=== PATIENT | male | born 1945 | race Caucasian/White ===

== ENCOUNTER 2017-03-24 11:50 | Emergency (ER) | payer MEDICARE, BC ==
--- OUTSIDE RECORDS SUMMARY | 2017-03-24 12:04 | XMS REPORT ---
:1945 External Reference #:[id number] Author Organization [facility] Address [address] [address] Phone [phone] Care Team Providers Name Role Phone Bandar Dowell MD Primary Care Physician Unavailable Payers Type Date Identification Numbers Payment Provider Subscriber Medicare Primary Policy Number: [id number] Medicare Ludivina Alvarez Jennifer PayID: [id number] [address] [place] [address] Medigap Part B Effective: 2009 Policy Number: Medicare Ludivina Alvarez Jennifer [id number] Expires: 2014 PayID: [id number] [address] [place] [address] Medigap Part B Effective: Policy Number: BS Yulisa Alvarez Jennifer 2012 [id number] PayID: [id number] [address] [address] [place] [address] Advance Directives Type Date Description Status Comment Other Directive 12/10/2015 Health Care Proxy Current and Verified Problems Date Description Provider Status Onset: 09/14/2012 Urinary tract infectious disease Bandar Dowell M.D., FACP Active Note: recurrent Onset: 07/18/2013 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 Onset: 09/27/2015 Family history of prostate Bandar Dowell Active cancer Veda,FACP Onset: 08/28/2016 Eczema Bandar Dowell Active Veda,FACP Onset: 08/28/2016 Osteoarthritis of glenohumeral Bandar Dowell Active joint Veda,FACP Onset: 11/03/2016 Impaired fasting glycaemia Bandar Dowell, Active Veda,FACP Onset: 06/16/2012 Hypo-osmolality and or Bandar Dowell, Resolved hyponatremia Veda,FACP Resolved: 07/04/2012 Onset: 06/20/2012 Acute prostatitis Bandar Dowell M.D.,FACP Resolved Resolved: 09/14/2012 Family History Date Family Member(s) Problem(s) Comments General No Current Problems : (age 79 Father due to Natural Years) Causes Father Unknown mostly, estranged : (age 95 Mother due to CHF Years) Mother Osteoporosis Siblings 1 First Brother Prostate Cancer ? Social History Type Date Description Comments Marital Status Occupation Professor chemical research engineer ETOH Use 09/27/2015 Consumes 1 glass of wine per day Smoking Patient has never smoked Recreational Drug Use Denies Drug Use General Hx Text 1 daughter, vet no undercooked meat, or unpasteurized dairy consumption travel to , [place], [facility] Was visiting daughter in , was around goats and chickens then in January. Allergies, Adverse Reactions, Alerts Date Description Reaction Status Severity Comments 06/16/2012 NKDA active Medications Medication Date Status Form Strength Qnty SIG Indications Ordering Provider Fluocinonide 07/06/ Active Cream 0.05% 30gm twice a [place] 2013 day as Pachikara needed Veda rash Hydrocortisone 07/04/ Active Ointment 1% 30unit topical Bandar 2014 s every day Azeem Dowell as needed Veda,DANAE disp 2 x 15 gm tubes Bactroban 07/04/ Active Ointment 2% 22unit apply to Bandar 2014 s affected Azeem Dowell area Veda,FACP twice a day Centrum Silver 06/16/ Active Tablets 1 po qd Bandar Ultra Mens 2012 Azeem Dowell M.D.,FACP Glucosamine / Active Capsules 250-200mg 1 po qd Unknown Chondroitin 0000 Calcium Citrate / Active Tablets 250-200mg- 1po daily Unknown + D3 0000 Unit Motrin Ib / Active Tablets 200mg 60tabs 2 tablets Unknown 0000 prn Fluconazole 11/03/ Hx Tablets 200mg 1 tab po Bandar 2017 - weekly Azeem Dowell, 01/26/ for 12 M.D.,[facility] 2016 wks Triamcinolone 08/28/ Hx Cream 0.1% 15gm apply Bandar Acetonide 2017 - every day Azeem Dowell, 11/03/ as needed M.D.,FACP 2016 to face Bactrim DS 06/28/ Hx Tablets 800-160mg 20tabs 1 by 601.1 Pablo 2014 - mouth D. 07/29/ twice a [place], 2014 day M.D. Bactrim DS 05/14/ Hx Tablets 800-160mg 60tabs 2 tab by 601.1 Pablo 2014 - mouth D. 06/28/ twice a [place], 2014 day M.D. Invanz 04/02/ Hx Solution 1gm 42unit every 12 Bandar 2015 - Rec s hours Azeem Dowell, 05/13/ M.D.,[facility] 2014 Bactrim DS 11/16/ Hx Tablets 800-160mg 120tab 2 by 601.1 Pablo 2013 - s mouth D. 04/02/ twice a 2014 day M.D. Bactrim DS 09/28/ Hx Tablets 800-160mg 180tab 2 tabs po Pablo 2013 - s tid D. 11/16/ 2013 M.D. Augmentin 09/13/ Hx Tablets 500-125mg 60tabs 1 by Bandar 2013 - mouth Azeem Dowell, 10/18/ twice a [facility].,[facility] 2013 day Tramadol HCL 07/18/ Hx Tablets 50mg 45tabs 1-2 by 721.0 Rios Zambrano 2013 - mouth [place], 05/13/ four M.D. 2015 times a day as needed Augmentin 07/17/ Hx Tablets 500-125mg 60tabs 1 by 601.1 Pablo 2013 - mouth D. 09/13/ twice a [place], 2013 day M.D. Augmentin 06/13/ Hx Tablets 500-125mg 112tab 1 by Pablo 2013 - s mouth D. 06/13/ twice a [place]2013 day M.D. Augmentin 06/13/ Hx Tablets 500-125mg 60tabs 1 by Pablo 2013 - mouth D. 09/13/ twice a [place], 2013 day M.D. Augmentin 05/10/ Hx Tablets 500-125mg 84tabs 1 by 601.1 Pablo 2013 - mouth D. 06/13/ twice a [place], 2013 day M.D. Augmentin 03/07/ Hx Tablets 500-125mg 56tabs 1 po bid 601.1 Pablo 2013 - D. 05/10/ [place], 2013 M.D. Doxycycline 12/07/ Hx Tablets DR 100mg 20tabs 1 tab po 601.[address] 2012 - bid Azeem Dowell, 04/11/ M.D.,FACP 2013 Fluocinonide 11/23/ Hx Cream 0.05% 30unit bid prn Bandar 2013 - s rash Azeem Dowell, 02/24/ M.D.,FACP 2012 Hydrocortisone 11/16/ Hx Ointment 1% 30unit topical Bandar 2013 - s qd prn Azeem Dowell, 11/23/ disp 2 x M.D.,FACP 2012 15 gm tubes Voltaren 09/14/ Hx Gel 1% 100g apply 2 728.71 Bandar 2013 - gms to DuongBennett Valderramad, 11/24/ affected M.D.,FACP 2012 area bid prn Bactroban 08/03/ Hx Ointment 2% 15g apply to Bandar 2012 - affected Azeem Dowell, 02/01/ area bid M.D.,FACP 2012 Bactrim DS 06/24/ Hx Tablets 800-160mg 56tabs 1 po bid 601.0 Pablo 2012 - D. 07/22/ [place], 2012 M.D. Cipro / Hx Tablets 500mg 1 po bid Unknown 0000 - 2012 Cheratussin ac / Hx Syrup 100-10mg/5 120uni 1-2 tsp Bandar 0000 - ML ts po every D. Magalys, 07/04/ 4-6 hrs M.D.,FACP 2012 prn Ventolin HFA / Hx Aerosol 108(90Base 1Month 2 puffs Unknown 0000 - ) mcg/Act po qid 09/14/ prn 2012 Bactrim DS / Hx Tablets 800-160mg 14tabs 1 po bid Unknown - 2012 Bactrim DS / Hx Tablets 800-160mg 56tabs 1 po bid 601.0 Unknown 0000 - 2012 Bactrim DS / Hx Tablets 800-160mg 20tabs 1 po bid Bandar Dowell, 06/27/ Veda,[facility] 2014 Immunizations CPT Code Status Date Vaccine Lot # [id number] Given 01/14/2017 Influenza Virus Vaccine, Quadrivalent, Split, Preservative Free 21158 Given 09/27/2015 Pneumococcal Conjugate Vaccine 13 Valent For [id number] Intramuscular Use 69864 Given 02/15/2014 Zoster (Zostavax) [id number] 83292 Given 12/13/2013 Influenza Virus Vaccine, Quadrivalent, Split, Preservative Free 14600 Given 09/14/2012 Pneumonia Vaccine [id number] 70143 Given 09/07/2002 Td Toxoids Adsorbed For Use 7Yrs Or Older For Intramuscular Use Vital Signs Date Vital Result Comment 03/09/2017 Height 74.5 inches 6'2.50" Weight 220.00 lb Heart Rate 74 /min BP Systolic Sitting 150 mmHg BP Diastolic Sitting 90 mmHg BP Systolic Recheck 132 mmHg BP Diastolic Recheck 84 mmHg Body Temperature 96.7 F O2 % BldC Oximetry 96 % BMI (Body Mass Index) 27.9 kg/m2 11/03/2016 Weight 215.75 lb Heart Rate 67 /min BP Systolic Sitting 160 mmHg BP Diastolic Sitting 88 mmHg BP Systolic Recheck 160 mmHg BP Diastolic Recheck 85 mmHg Body Temperature 97.8 F O2 % BldC Oximetry 98 % 08/28/2016 Weight 216.38 lb Heart Rate 63 /min BP Systolic Sitting 170 mmHg BP Diastolic Sitting 90 mmHg BP Systolic Recheck 144 mmHg BP Diastolic Recheck 92 mmHg Body Temperature 97.2 F O2 % BldC Oximetry 98 % 06/24/2016 Weight 217.12 lb Heart Rate 68 /min BP Systolic Sitting 152 mmHg BP Diastolic Sitting 91 mmHg Body Temperature 97.1 F O2 % BldC Oximetry 98 % 02/13/2016 Weight 222.00 lb Heart Rate 57 /min BP Systolic Sitting 148 mmHg BP Diastolic Sitting 82 mmHg Body Temperature 97.6 F O2 % BldC Oximetry 96 % 09/27/2015 Height 75 inches 6'3" Weight 217.00 lb Heart Rate 66 /min BP Systolic Sitting 122 mmHg BP Diastolic Sitting 70 mmHg Body Temperature 97.3 F O2 % BldC Oximetry 98 % BMI (Body Mass Index) 27.1 kg/m2 07/30/2014 Height 75 inches 6'3" Weight 222.00 lb Heart Rate 64 /min BP Systolic Sitting 116 mmHg BP Diastolic Sitting 62 mmHg Respiratory Rate 14 /min Body Temperature 97.6 F BMI (Body Mass Index) 27.7 kg/m2 06/28/2014 Height 75 inches 6'3" Weight 224.50 lb Heart Rate 60 /min BP Systolic Sitting 106 mmHg BP Diastolic Sitting 60 mmHg Respiratory Rate 14 /min Body Temperature 97.3 F BMI (Body Mass Index) 28.1 kg/m2 05/14/2014 Height 75 inches 6'3" Weight 227.25 lb Heart Rate 68 /min BP Systolic Sitting 114 mmHg BP Diastolic Sitting 66 mmHg Respiratory Rate 14 /min Body Temperature 97.7 F BMI (Body Mass Index) 28.4 kg/m2 04/11/2014 Height 75 inches 6'3" Weight 223.00 lb Heart Rate 54 /min BP Systolic Sitting 124 mmHg BP Diastolic Sitting 72 mmHg Respiratory Rate 14 /min Body Temperature 97.4 F BMI (Body Mass Index) 27.9 kg/m2 03/19/2014 Height 75 inches 6'3" Weight 223.00 lb Heart Rate 58 /min BP Systolic Sitting 122 mmHg BP Diastolic Sitting 60 mmHg Respiratory Rate 16 /min Body Temperature 96.6 F BMI (Body Mass Index) 27.9 kg/m2 01/22/2014 Height 75 inches 6'3" Heart Rate 49 /min BP Systolic Sitting 122 mmHg BP Diastolic Sitting 64 mmHg Respiratory Rate 14 /min Body Temperature 97.7 F 01/01/2014 Height 75 inches 6'3" Weight 221.00 lb Heart Rate 58 /min BP Systolic Sitting 120 mmHg BP Diastolic Sitting 72 mmHg Respiratory Rate 14 /min Body Temperature 97.2 F BMI (Body Mass Index) 27.6 kg/m2 11/16/2013 Height 75 inches 6'3" Weight 219.00 lb Heart Rate 48 /min BP Systolic Sitting 112 mmHg BP Diastolic Sitting 76 mmHg Respiratory Rate 14 /min Body Temperature 98.3 F BMI (Body Mass Index) 27.4 kg/m2 10/19/2013 Height 75 inches 6'3" Weight 218.00 lb Heart Rate 52 /min BP Systolic Sitting 118 mmHg BP Diastolic Sitting 70 mmHg Respiratory Rate 14 /min Body Temperature 97.3 F BMI (Body Mass Index) 27.2 kg/m2 09/18/2013 Weight 225.00 lb Heart Rate 60 /min BP Systolic Sitting 90 mmHg BP Diastolic Sitting 60 mmHg Body Temperature 97.5 F 09/13/2013 Weight 218.00 lb Heart Rate 98 /min BP Systolic Sitting 124 mmHg BP Diastolic Sitting 72 mmHg Body Temperature 98.5 F 07/18/2013 Height 75 inches 6'3" Weight 225.00 lb BP Systolic 118 mmHg BP Diastolic 60 mmHg Pain Level 2 neck BMI (Body Mass Index) 28.1 kg/m2 07/17/2013 Height 75 inches 6'3" Weight 225.00 lb Heart Rate 76 /min BP Systolic 142 mmHg BP Diastolic 86 mmHg Body Temperature 97.2 F BMI (Body Mass Index) 28.1 kg/m2 06/27/2013 Weight 223.50 lb Heart Rate 42 /min BP Systolic Sitting 120 mmHg BP Diastolic Sitting 72 mmHg 05/10/2013 Height 75 inches 6'3" Weight 225.00 lb Heart Rate 72 /min BP Systolic 120 mmHg BP Diastolic 76 mmHg Body Temperature 97.7 F BMI (Body Mass Index) 28.1 kg/m2 03/07/2013 Height 75 inches 6'3" Weight 225.00 lb Heart Rate 60 /min BP Systolic 124 mmHg BP Diastolic 70 mmHg Body Temperature 97.4 F BMI (Body Mass Index) 28.1 kg/m2 02/24/2013 Height 75 inches 6'3" Weight 224.25 lb Heart Rate 64 /min BP Systolic Sitting 98 mmHg BP Diastolic Sitting 56 mmHg Body Temperature 101.8 F BMI (Body Mass Index) 28.0 kg/m2 02/01/2013 Weight 224.00 lb Heart Rate 60 /min BP Systolic Sitting 122 mmHg BP Diastolic Sitting 76 mmHg Body Temperature 97.7 F 01/03/2013 Weight 220.00 lb Heart Rate 60 /min BP Systolic 124 mmHg BP Diastolic 74 mmHg Body Temperature 97.6 F 12/07/2012 Weight 220.00 lb Heart Rate 68 /min BP Systolic 118 mmHg BP Diastolic 72 mmHg Body Temperature 96.8 F 11/24/2012 Weight 219.50 lb Heart Rate 48 /min BP Systolic Sitting 130 mmHg BP Diastolic Sitting 64 mmHg 09/14/2012 Height 75.25 inches 6'3.25" Weight 216.50 lb Heart Rate 56 /min BP Systolic Sitting 120 mmHg BP Diastolic Sitting 84 mmHg BMI (Body Mass Index) 26.9 kg/m2 08/17/2012 Height 74.75 inches 6'2.75" Weight 215.00 lb Heart Rate 60 /min BP Systolic 110 mmHg BP Diastolic 76 mmHg Body Temperature 96.8 F BMI (Body Mass Index) 27.1 kg/m2 07/04/2012 Height 74.75 inches 6'2.75" Weight 215.00 lb Heart Rate 58 /min BP Systolic Sitting 120 mmHg BP Diastolic Sitting 72 mmHg Body Temperature 97.2 F BMI (Body Mass Index) 27.1 kg/m2 06/24/2012 Weight 217.00 lb BP Systolic Sitting 124 mmHg BP Diastolic Sitting 74 mmHg Body Temperature 98.2 F 06/20/2012 Weight 217.00 lb Heart Rate 82 /min BP Systolic Sitting 132 mmHg BP Diastolic Sitting 78 mmHg Body Temperature 98.8 F O2 % BldC Oximetry 93 % 06/16/2012 Height 75.25 inches 6'3.25" Weight 217.25 lb Heart Rate 64 /min BP Systolic Sitting 144 mmHg BP Diastolic Sitting 80 mmHg Body Temperature 102.8 F BMI (Body Mass Index) 27.0 kg/m2 Results Test Date Test Result H/L Range Note Lipid Profile (Trig/Chol/HDL) 10/16/2016 Triglycerides 53 mg/dL 1 Cholesterol 159 mg/dL 2 HDL Cholesterol 55.6 mg/dL 3 LDL Cholesterol 93 mg/dL 4 Basic Metabolic Panel 10/16/2016 Sodium 130 mmol/L Low 133-145 Potassium 4.5 mmol/L 3.5-5.0 Chloride 95 mmol/L Low 101-111 Co2 Carbon Dioxide 31 mmol/L 22-32 Anion Gap 4 mmol/L 2-11 Glucose 106 mg/dL High 70-100 Blood Urea Nitrogen 16 mg/dL 6-24 Creatinine 0.87 mg/dL 0.67-1.17 BUN/Creatinine Ratio 18.4 8-20 Calcium 9.4 mg/dL 8.6-10.3 Egfr Non- 86.3 >60 Egfr 110.9 >60 5 Laboratory test finding 03/05/2016 PSA Screening 1.154 ng/mL 0-4.000 6 Basic Metabolic Panel 03/05/2016 Sodium 129 mmol/L Low 133-145 Potassium 4.0 mmol/L 3.5-5.0 Chloride 93 mmol/L Low 101-111 Co2 Carbon Dioxide 28 mmol/L 22-32 Anion Gap 8 mmol/L 2-11 Glucose 100 mg/dL 70-100 Blood Urea Nitrogen 21 mg/dL 6-24 Creatinine 0.83 mg/dL 0.67-1.17 BUN/Creatinine Ratio 25.3 High 8-20 Calcium 9.3 mg/dL 8.6-10.3 Egfr Non- 91.3 >60 Egfr 117.5 >60 7 Laboratory test finding 03/05/2016 Osmolality Serum 271 mOsm/kg Low 275 - 295 8 Vitamin B12 617 pg/mL 180-914 9 Lipid Profile (Trig/Chol/HDL) 09/23/2015 Triglycerides 52 mg/dL 10 Cholesterol 146 mg/dL 11 HDL Cholesterol 49.6 mg/dL 12 LDL Cholesterol 86 mg/dL 13 Laboratory test 09/23/2015 Glucose 94 mg/dL 70-100 14 finding Ua And Culture 07/26/2014 Urine Culture And SEE RESULT BELOW 15 Sensitivity Sensitivities Urinalysis Profile 07/26/2014 Urine Color Yellow Urine Appearance Clear Urine Specific [place] 1.015 1.010-1.030 Urine pH 7.0 5-9 Urine Urobilinogen Negative Negative Urine Ketones Negative Negative Urine Protein Negative Negative Urine Leukocytes Negative Negative Urine Blood Negative Negative * * Negative 16 Urine Nitrite Negative Negative Urine Bilirubin Negative Negative Urine Glucose Negative Negative Urine Culture And Sensitivities 06/28/2014 Urine Culture (SEE NOTE) 17 Urinalysis Profile 06/28/2014 Urine Color Yellow Urine Appearance Clear Urine Specific [place] 1.017 1.010-1.030 Urine pH 6.0 5-9 Urine Urobilinogen Negative Negative Urine Ketones Negative Negative Urine Protein Negative Negative Urine Leukocytes Negative Negative Urine Blood Negative Negative * * Negative 18 Urine Nitrite Negative Negative Urine Bilirubin Negative Negative Urine Glucose Negative Negative Comp Metabolic Panel 05/14/2014 Sodium 130 mmol/L Low 133-145 Potassium 4.2 mmol/L 3.5-5.0 Chloride 97 mmol/L Low 101-111 Co2 Carbon Dioxide 29 mmol/L 22-32 Anion Gap 4 mmol/L 2-11 Glucose 111 mg/dL High 70-100 Blood Urea Nitrogen 17 mg/dL 6-24 Creatinine 0.79 mg/dL 0.67-1.17 BUN/Creatinine Ratio 21.5 High 8-20 Calcium 9.2 mg/dL 8.6-10.3 Total Protein 6.8 g/dL 6.4-8.9 Albumin 3.9 g/dL 3.2-5.2 Globulin 2.9 g/dL 2-4 Albumin/Globulin Ratio 1.3 1-3 Total Bilirubin 0.60 mg/dL 0.2-1.0 Alkaline Phosphatase 74 U/L 34-104 Alt 32 U/L 7-52 Ast 28 U/L 13-39 Egfr Non- 97.2 >60 Egfr 125.1 >60 19 Laboratory test finding 05/14/2014 CRP High Sensitivity 0.94 mg/L 20 CBC Auto Diff 05/14/2014 White Blood Count 3.9 10^3/uL Low 4.8-10.8 Red Blood Count 4.73 10^6/uL 4.0-5.4 Hemoglobin 15.6 g/dL 14.0-18.0 Hematocrit 46 % 42-52 Mean Corpuscular Volume 97 fL High 80-94 Mean Corpuscular Hemoglobin 33 pg High 27-31 Mean Corpuscular HGB Conc 34 g/dL 31-36 Red Cell Distribution Width 13 % 10.5-15 Platelet Count 183 10^3/uL 150-450 Mean Platelet Volume 7 um3 Low 7.4-10.4 Abs Neutrophils 2.5 10^3/uL 1.5-7.7 Abs Lymphocytes 0.8 10^3/uL Low 1.0-4.8 Abs Monocytes 0.5 10^3/uL 0-0.8 Abs Eosinophils 0 10^3/uL 0-0.6 Abs Basophils 0 10^3/uL 0-0.2 Abs Nucleated RBC 0.01 10^3/uL Granulocyte % 64.1 % 38-83 Lymphocyte % 20.1 % Low 25-47 Monocyte % 14.1 % High 1-9 Eosinophil % 0.9 % 0-6 Basophil % 0.8 % 0-2 Nucleated Red Blood Cells % 0.2 Laboratory test finding 05/14/2014 Erythrocyte Sed Rate 3 mm/Hr 0-40 Laboratory test finding 05/07/2014 Erythrocyte Sed Rate 6 mm/Hr 0-40 Comp Metabolic Panel 05/07/2014 Sodium 128 mmol/L Low 133-145 Potassium 3.8 mmol/L 3.5-5.0 Chloride 95 mmol/L Low 101-111 Co2 Carbon Dioxide 28 mmol/L 22-32 Anion Gap 5 mmol/L 2-11 Glucose 126 mg/dL High 70-100 Blood Urea Nitrogen 19 mg/dL 6-24 Creatinine 0.79 mg/dL 0.67-1.17 BUN/Creatinine Ratio 24.1 High 8-20 Calcium 9.3 mg/dL 8.6-10.3 Total Protein 6.7 g/dL 6.4-8.9 Albumin 3.8 g/dL 3.2-5.2 Globulin 2.9 g/dL 2-4 Albumin/Globulin Ratio 1.3 1-3 Total Bilirubin 0.60 mg/dL 0.2-1.0 Alkaline Phosphatase 74 U/L 34-104 Alt 32 U/L 7-52 Ast 26 U/L 13-39 Egfr Non- 97.2 >60 Egfr 125.1 >60 21 Laboratory test finding 05/07/2014 C Reactive Protein 1.16 mg/L < 5.00 22 CBC Auto Diff 05/07/2014 White Blood Count 3.7 10^3/uL Low 4.8-10.8 23 Red Blood Count 4.79 10^6/uL 4.0-5.4 Hemoglobin 15.7 g/dL 14.0-18.0 Hematocrit 47 % 42-52 Mean Corpuscular Volume 98 fL High 80-94 Mean Corpuscular Hemoglobin 33 pg High 27-31 Mean Corpuscular HGB Conc 34 g/dL 31-36 Red Cell Distribution Width 13 % 10.5-15 Platelet Count 178 10^3/uL 150-450 Mean Platelet Volume 8 um3 7.4-10.4 Abs Neutrophils 2.4 10^3/uL 1.5-7.7 Abs Lymphocytes 0.8 10^3/uL Low 1.0-4.8 Abs Monocytes 0.4 10^3/uL 0-0.8 Abs Eosinophils 0 10^3/uL 0-0.6 Abs Basophils 0 10^3/uL 0-0.2 Abs Nucleated RBC 0 10^3/uL Granulocyte % 65.2 % 38-83 Lymphocyte % 21.9 % Low 25-47 Monocyte % 10.9 % High 1-9 Eosinophil % 1.2 % 0-6 Basophil % 0.8 % 0-2 Nucleated Red Blood Cells % 0.1 Comp Metabolic Panel 04/30/2014 Sodium 131 mmol/L Low 133-145 Potassium 4.0 mmol/L 3.5-5.0 Chloride 97 mmol/L Low 101-111 Co2 Carbon Dioxide 30 mmol/L 22-32 Anion Gap 4 mmol/L 2-11 Glucose 125 mg/dL High 70-100 Blood Urea Nitrogen 17 mg/dL 6-24 Creatinine 0.84 mg/dL 0.67-1.17 BUN/Creatinine Ratio 20.2 High 8-20 Calcium 9.2 mg/dL 8.6-10.3 Total Protein 6.8 g/dL 6.4-8.9 Albumin 4.0 g/dL 3.2-5.2 Globulin 2.8 g/dL 2-4 Albumin/Globulin Ratio 1.4 1-3 Total Bilirubin 0.70 mg/dL 0.2-1.0 Alkaline Phosphatase 73 U/L 34-104 Alt 33 U/L 7-52 Ast 28 U/L 13-39 Egfr Non- 90.6 >60 Egfr 116.5 >60 24 Laboratory test finding 04/30/2014 C Reactive Protein 1.28 mg/L < 5.00 25 CBC Auto Diff 04/30/2014 White Blood Count 3.6 10^3/uL Low 4.8-10.8 Red Blood Count 4.67 10^6/uL 4.0-5.4 Hemoglobin 15.5 g/dL 14.0-18.0 Hematocrit 45 % 42-52 Mean Corpuscular Volume 97 fL High 80-94 Mean Corpuscular Hemoglobin 33 pg High 27-31 Mean Corpuscular HGB Conc 34 g/dL 31-36 Red Cell Distribution Width 13 % 10.5-15 Platelet Count 200 10^3/uL 150-450 Mean Platelet Volume 7 um3 Low 7.4-10.4 Abs Neutrophils 2.4 10^3/uL 1.5-7.7 Abs Lymphocytes 0.7 10^3/uL Low 1.0-4.8 Abs Monocytes 0.4 10^3/uL 0-0.8 Abs Eosinophils 0 10^3/uL 0-0.6 Abs Basophils 0 10^3/uL 0-0.2 Abs Nucleated RBC 0 10^3/uL Granulocyte % 66.5 % 38-83 Lymphocyte % 20.7 % Low 25-47 Monocyte % 10.8 % High 1-9 Eosinophil % 1.1 % 0-6 Basophil % 0.9 % 0-2 Nucleated Red Blood Cells % 0 Laboratory test finding 04/30/2014 Erythrocyte Sed Rate 7 mm/Hr 0-40 Comp Metabolic Panel 04/23/2014 Sodium 132 mmol/L Low 133-145 Potassium 4.2 mmol/L 3.5-5.0 Chloride 98 mmol/L Low 101-111 Co2 Carbon Dioxide 30 mmol/L 22-32 Anion Gap 4 mmol/L 2-11 Glucose 101 mg/dL High 70-100 Blood Urea Nitrogen 19 mg/dL 6-24 Creatinine 0.79 mg/dL 0.67-1.17 BUN/Creatinine Ratio 24.1 High 8-20 Calcium 9.0 mg/dL 8.6-10.3 Total Protein 6.9 g/dL 6.4-8.9 Albumin 4.1 g/dL 3.2-5.2 Globulin 2.8 g/dL 2-4 Albumin/Globulin Ratio 1.5 1-3 Total Bilirubin 0.60 mg/dL 0.2-1.0 Alkaline Phosphatase 71 U/L 34-104 Alt 37 U/L 7-52 Ast 29 U/L 13-39 Egfr Non- 97.2 >60 Egfr 125.1 >60 26 Laboratory test finding 04/23/2014 C Reactive Protein 1.66 mg/L < 5.00 27 CBC Auto Diff 04/23/2014 White Blood Count 4.3 10^3/uL Low 4.8-10.8 Red Blood Count 4.81 10^6/uL 4.0-5.4 Hemoglobin 16.2 g/dL 14.0-18.0 Hematocrit 47 % 42-52 Mean Corpuscular Volume 97 fL High 80-94 Mean Corpuscular Hemoglobin 34 pg High 27-31 Mean Corpuscular HGB Conc 35 g/dL 31-36 Red Cell Distribution Width 13 % 10.5-15 Platelet Count 208 10^3/uL 150-450 Mean Platelet Volume 7 um3 Low 7.4-10.4 Abs Neutrophils 2.8 10^3/uL 1.5-7.7 Abs Lymphocytes 0.9 10^3/uL Low 1.0-4.8 Abs Monocytes 0.6 10^3/uL 0-0.8 Abs Eosinophils 0 10^3/uL 0-0.6 Abs Basophils 0 10^3/uL 0-0.2 Abs Nucleated RBC 0 10^3/uL Granulocyte % 64.2 % 38-83 Lymphocyte % 20.8 % Low 25-47 Monocyte % 13.1 % High 1-9 Eosinophil % 1.0 % 0-6 Basophil % 0.9 % 0-2 Nucleated Red Blood Cells % 0 Laboratory test finding 04/23/2014 Erythrocyte Sed Rate 6 mm/Hr 0-40 CBC Auto Diff 04/16/2014 White Blood Count 3.9 10^3/uL Low 4.8-10.8 28 Red Blood Count 4.74 10^6/uL 4.0-5.4 Hemoglobin 15.8 g/dL 14.0-18.0 Hematocrit 46 % 42-52 Mean Corpuscular Volume 98 fL High 80-94 Mean Corpuscular Hemoglobin 33 pg High 27-31 Mean Corpuscular HGB Conc 34 g/dL 31-36 Red Cell Distribution Width 13 % 10.5-15 Platelet Count 193 10^3/uL 150-450 Mean Platelet Volume 7 um3 Low 7.4-10.4 Abs Neutrophils 2.3 10^3/uL 1.5-7.7 Abs Lymphocytes 0.8 10^3/uL Low 1.0-4.8 Abs Monocytes 0.6 10^3/uL 0-0.8 Abs Eosinophils 0 10^3/uL 0-0.6 Abs Basophils 0 10^3/uL 0-0.2 Abs Nucleated RBC 0 10^3/uL Granulocyte % 60.4 % 38-83 Lymphocyte % 21.5 % Low 25-47 Monocyte % 16.4 % High 1-9 Eosinophil % 1.0 % 0-6 Basophil % 0.7 % 0-2 Nucleated Red Blood Cells % 0.1 Comp Metabolic Panel 04/16/2014 Sodium 131 mmol/L Low 133-145 Potassium 4.3 mmol/L 3.5-5.0 Chloride 97 mmol/L Low 101-111 Co2 Carbon Dioxide 29 mmol/L 22-32 Anion Gap 5 mmol/L 2-11 Glucose 94 mg/dL 70-100 Blood Urea Nitrogen 21 mg/dL 6-24 Creatinine 0.78 mg/dL 0.67-1.17 BUN/Creatinine Ratio 26.9 High 8-20 Calcium 9.2 mg/dL 8.6-10.3 Total Protein 6.8 g/dL 6.4-8.9 Albumin 4.1 g/dL 3.2-5.2 Globulin 2.7 g/dL 2-4 Albumin/Globulin Ratio 1.5 1-3 Total Bilirubin 0.50 mg/dL 0.2-1.0 Alkaline Phosphatase 63 U/L 34-104 Alt 35 U/L 7-52 Ast 25 U/L 13-39 Egfr Non- 98.7 >60 Egfr 126.9 >60 29 Laboratory test finding 04/16/2014 C Reactive Protein 8.71 mg/L High < 5.00 30 Erythrocyte Sed Rate 6 mm/Hr 0-40 CBC Auto Diff 04/09/2014 White Blood Count 4.1 10^3/uL Low 4.8-10.8 Red Blood Count 4.87 10^6/uL 4.0-5.4 Hemoglobin 16.2 g/dL 14.0-18.0 Hematocrit 48 % 42-52 Mean Corpuscular Volume 98 fL High 80-94 Mean Corpuscular Hemoglobin 33 pg High 27-31 Mean Corpuscular HGB Conc 34 g/dL 31-36 Red Cell Distribution Width 13 % 10.5-15 Platelet Count 202 10^3/uL 150-450 Mean Platelet Volume 7 um3 Low 7.4-10.4 Abs Neutrophils 2.7 10^3/uL 1.5-7.7 Abs Lymphocytes 0.8 10^3/uL Low 1.0-4.8 Abs Monocytes 0.5 10^3/uL 0-0.8 Abs Eosinophils 0 10^3/uL 0-0.6 Abs Basophils 0 10^3/uL 0-0.2 Abs Nucleated RBC 0 10^3/uL Granulocyte % 66.0 % 38-83 Lymphocyte % 20.6 % Low 25-47 Monocyte % 12.1 % High 1-9 Eosinophil % 0.7 % 0-6 Basophil % 0.6 % 0-2 Nucleated Red Blood Cells % 0 Comp Metabolic Panel 04/09/2014 Sodium 131 mmol/L Low 133-145 Potassium 4.1 mmol/L 3.5-5.0 Chloride 98 mmol/L Low 101-111 Co2 Carbon Dioxide 29 mmol/L 22-32 Anion Gap 4 mmol/L 2-11 Glucose 111 mg/dL High 70-100 Blood Urea Nitrogen 18 mg/dL 6-24 Creatinine 0.87 mg/dL 0.67-1.17 BUN/Creatinine Ratio 20.7 High 8-20 Calcium 9.4 mg/dL 8.6-10.3 Total Protein 7.0 g/dL 6.4-8.9 Albumin 4.3 g/dL 3.2-5.2 Globulin 2.7 g/dL 2-4 Albumin/Globulin Ratio 1.6 1-3 Total Bilirubin 0.70 mg/dL 0.2-1.0 Alkaline Phosphatase 67 U/L 34-104 Alt 35 U/L 7-52 Ast 33 U/L 13-39 Egfr Non- 87.0 >60 Egfr 111.9 >60 31 Laboratory test finding 04/09/2014 C Reactive Protein 1.49 mg/L < 5.00 32 Erythrocyte Sed Rate 5 mm/Hr 0-40 Urinalysis Profile 12/19/2013 Urine Color Yellow Urine Appearance Cloudy Urine Specific [place] 1.015 1.010-1.030 Urine pH 7.0 5-9 Urine Urobilinogen Negative Negative Urine Ketones Negative Negative Urine Protein 1+(30 mg/dL) Negative Urine Leukocytes 3+ Negative Urine Blood 2+ Negative Urine Nitrite Negative Negative Urine Bilirubin Negative Negative Urine Glucose Negative Negative Urine White Blood Cell 3+(>20/hpf) Absent Urine Red Blood Cell 3+(>10/hpf) Absent Urine Bacteria 1+ Absent Urine Transitional Epithelial Present Absent Urine Culture And Sensitivities 12/19/2013 Urine Culture (SEE NOTE) 33 Urinalysis Profile 12/16/2013 Urine Color Yellow Urine Appearance Clear Urine Specific [place] 1.016 1.010-1.030 Urine pH 7.0 5-9 Urine Urobilinogen Negative Negative Urine Ketones Negative Negative Urine Protein Negative Negative Urine Leukocytes Trace Negative Urine Blood Negative Negative Urine Nitrite Negative Negative Urine Bilirubin Negative Negative Urine Glucose Negative Negative Urine White Blood Cell 1+(6-10/hpf) Absent Urine Red Blood Cell 1+(3-5/hpf) Absent Urine Bacteria Absent Absent Urine Culture And Sensitivities 12/16/2013 Urine Culture (SEE NOTE) 34 Urinalysis Profile 11/24/2013 Urine Color Yellow Urine Appearance Cloudy Urine Specific [place] 1.014 1.010-1.030 Urine pH 7.0 5-9 Urine Urobilinogen Negative Negative Urine Ketones Negative Negative Urine Protein Negative Negative Urine Leukocytes Negative Negative Urine Blood Negative Negative Urine Nitrite Negative Negative Urine Bilirubin Negative Negative Urine Glucose Negative Negative Urine Culture And 11/24/2013 Urine Culture (SEE NOTE) 35 Sensitivities CBC Auto Diff 10/04/2013 White Blood Count 3.3 10^3/uL Low 4.8-10.8 Red Blood Count 4.58 10^6/uL 4.0-5.4 Hemoglobin 14.9 g/dL 14.0-18.0 Hematocrit 43 % 42-52 Mean Corpuscular Volume 94 fL 80-94 Mean Corpuscular Hemoglobin 33 pg High 27-31 Mean Corpuscular HGB Conc 34 g/dL 31-36 Red Cell Distribution Width 14 % 10.5-15 Platelet Count 296 10^3/uL 150-450 Mean Platelet Volume 7 um3 Low 7.4-10.4 Abs Neutrophils 1.9 10^3/uL 1.5-7.7 Abs Lymphocytes 0.8 10^3/uL Low 1.0-4.8 Abs Monocytes 0.6 10^3/uL 0-0.8 Abs Eosinophils 0.1 10^3/uL 0-0.6 Abs Basophils 0 10^3/uL 0-0.2 Abs Nucleated RBC 0 10^3/uL Laboratory test finding 10/04/2013 C Reactive Protein 1.90 mg/L < 5.00 36 Erythrocyte Sed Rate 7 mm/Hr 0-40 Manual Differential 10/04/2013 Neutrophil % 55 % 38-83 Band % 2 % 0-8 Lymphocytes % 18 % Low 25-47 Monocytes % 15 % High 0-13 Basophil % 3 % High 0-2 Reactive Lymph % 7 % High 0-6 RBC Morphology Normal Normal CBC Auto Diff 09/13/2013 White Blood Count 25.3 10^3/uL High 4.8-10.8 Red Blood Count 4.84 10^6/uL 4.0-5.4 Hemoglobin 15.9 g/dL 14.0-18.0 Hematocrit 46 % 42-52 Mean Corpuscular Volume 94 fL 80-94 Mean Corpuscular Hemoglobin 33 pg High 27-31 Mean Corpuscular HGB Conc 35 g/dL 31-36 Red Cell Distribution Width 13 % 10.5-15 Platelet Count 210 10^3/uL 150-450 Mean Platelet Volume 7 um3 Low 7.4-10.4 Abs Neutrophils 22.8 10^3/uL High 1.5-7.7 Abs Lymphocytes 0.3 10^3/uL Low 1.0-4.8 Abs Monocytes 2.2 10^3/uL High 0-0.8 Abs Eosinophils 0 10^3/uL 0-0.6 Abs Basophils 0.1 10^3/uL 0-0.2 Abs Nucleated RBC 0.01 10^3/uL Laboratory test finding 09/13/2013 Blood Culture (SEE NOTE) 37 Manual Differential 09/13/2013 Neutrophil % 90 % High 38-83 Lymphocytes % 3 % Low 25-47 Monocytes % 7 % 0-13 RBC Morphology Normal Normal Urine Culture And 09/13/2013 Urine Culture (SEE NOTE) 38 Sensitivities Laboratory test finding 09/13/2013 C Reactive Protein 17.58 mg/L High &lt ; 5.00 39 Erythrocyte Sed Rate 3 mm/Hr 0-40 Comp Metabolic Panel 09/13/2013 Sodium 129 mmol/L Low 133-145 Potassium 4.4 mmol/L 3.7-5.6 Chloride 93 mmol/L Low 101-111 Co2 Carbon Dioxide 30 mmol/L 22-32 Anion Gap 6 mmol/L 2-11 Glucose 113 mg/dL High 70-100 Blood Urea Nitrogen 19 mg/dL 6-24 Creatinine 0.91 mg/dL 0.67-1.17 BUN/Creatinine Ratio 20.9 High 8-20 Calcium 9.2 mg/dL 8.6-10.3 Total Protein 6.9 g/dL 6.4-8.9 Albumin 4.3 g/dL 3.2-5.2 Globulin 2.6 g/dL 2-4 Albumin/Globulin Ratio 1.7 1-3 Total Bilirubin 1.20 mg/dL High 0.2-1.0 Alkaline Phosphatase 70 U/L 34-104 Alt 20 U/L 7-52 Ast 23 U/L 13-39 Egfr Non- 82.6 >60 Egfr 106.2 >60 40 Urinalysis Profile 09/13/2013 Urine Color Nuha Urine Appearance Turbid Urine Specific [place] 1.025 1.010-1.030 Urine pH 7.0 5-9 Urine Urobilinogen Negative Negative Urine Ketones Negative Negative Urine Protein 2+(100 mg/dL) Negative Urine Leukocytes 2+ Negative Urine Blood 1+ Negative Urine Nitrite Positive Negative Urine Bilirubin Negative Negative Urine Glucose Negative Negative Urine White Blood Cell 3+(>20/hpf) Absent Urine Red Blood Cell 3+(>10/hpf) Absent Urine Bacteria 1+ Absent Urine Yeast Present Absent Comp Metabolic Panel 07/31/2013 Sodium 129 mmol/L Low 133-145 Potassium 4.1 mmol/L 3.7-5.6 Chloride 95 mmol/L Low 101-111 Co2 Carbon Dioxide 31 mmol/L 22-32 Anion Gap 3 mmol/L 2-11 Glucose 107 mg/dL High 70-100 Blood Urea Nitrogen 23 mg/dL 6-24 Creatinine 0.87 mg/dL 0.67-1.17 BUN/Creatinine Ratio 26.4 High 8-20 Calcium 9.1 mg/dL 8.6-10.3 Total Protein 6.7 g/dL 6.4-8.9 Albumin 4.1 g/dL 3.2-5.2 Globulin 2.6 g/dL 2-4 Albumin/Globulin Ratio 1.6 1-3 Total Bilirubin 0.60 mg/dL 0.2-1.0 Alkaline Phosphatase 64 U/L 34-104 Alt 24 U/L 7-52 Ast 24 U/L 13-39 Egfr Non- 87.0 >60 Egfr 111.9 >60 41 CBC Auto Diff 07/31/2013 White Blood Count 6.2 10^3/uL 4.8-10.8 Red Blood Count 4.71 10^6/uL 4.0-5.4 Hemoglobin 15.3 g/dL 14.0-18.0 Hematocrit 45 % 42-52 Mean Corpuscular Volume 95 fL High 80-94 Mean Corpuscular Hemoglobin 33 pg High 27-31 Mean Corpuscular HGB Conc 34 g/dL 31-36 Red Cell Distribution Width 13 % 10.5-15 Platelet Count 209 10^3/uL 150-450 Mean Platelet Volume 7 um3 Low 7.4-10.4 Abs Neutrophils 4.2 10^3/uL 1.5-7.7 Abs Lymphocytes 0.8 10^3/uL Low 1.0-4.8 Abs Monocytes 0.9 10^3/uL High 0-0.8 Abs Eosinophils 0.2 10^3/uL 0-0.6 Abs Basophils 0 10^3/uL 0-0.2 Abs Nucleated RBC 0 10^3/uL Granulocyte % 68.9 % 38-83 Lymphocyte % 12.8 % Low 25-47 Monocyte % 13.9 % High 1-9 Eosinophil % 3.8 % 0-6 Basophil % 0.6 % 0-2 Nucleated Red Blood Cells % 0.1 Comp Metabolic Panel 02/28/2013 Sodium 130 mmol/L Low 133-145 Potassium 4.3 mmol/L 3.5-5.0 Chloride 95 mmol/L Low 101-111 Co2 Carbon Dioxide 30.0 mmol/L 22-32 Anion Gap 5.0 mmol/L 2-11 Glucose 77 mg/dL 70-100 Blood Urea Nitrogen 17 mg/dL 6-24 Creatinine 1.00 mg/dL 0.50-1.40 BUN/Creatinine Ratio 17.0 8-20 Calcium 9.1 mg/dL 8.1-9.9 Total Protein 6.6 g/dL 6.2-8.1 Albumin 3.6 g/dL 3.2-5.2 Globulin 3.0 g/dL 2-4 Albumin/Globulin Ratio 1.2 1-3 Total Bilirubin 0.4 mg/dL 0.4-1.5 Alkaline Phosphatase 66 U/L 30-110 Alt 44 U/L 14-54 Ast 37 U/L 12-42 Egfr Non- 74.3 >60 Egfr 95.6 >60 42 Urinalysis 02/24/2013 Urine Color Nuha Urine Appearance Clear Urine Specific [place] 1.029 1.010-1.030 Urine Esterase 2+ Negative Urine Nitrate Negative Negative Urine Urobilinogen Negative E.U./dL Negative Urine Protein 2+ mg/dL Negative Urine pH 6.5 5-9 Urine Blood Negative Negative Urine Ketones Trace mg/dL Negative Urine Bilirubin 1+ Negative Urine Glucose Trace mg/dL Negative Urine Culture And 02/24/2013 Urine Culture (SEE NOTE) 43 Sensitivities Laboratory test finding 02/24/2013 Rapid Influenza A (SEE NOTE) 44 B Antigen Urine Microscopic 02/24/2013 Urine WBC 3+ (>10 None Seen /hpf) Urine RBC None Seen None Seen Urine Epithelial Cells 1+ Squamous /hpf None Seen Bacteria Urine 1+ None Seen Comp Metabolic Panel 01/23/2013 Sodium 131 mmol/L Low 133-145 Potassium 4.8 mmol/L 3.5-5.0 Chloride 95 mmol/L Low 101-111 Co2 Carbon Dioxide 30.0 mmol/L 22-32 Anion Gap 6.0 mmol/L 2-11 Glucose 75 mg/dL 70-100 Blood Urea Nitrogen 19 mg/dL 6-24 Creatinine 1.00 mg/dL 0.50-1.40 BUN/Creatinine Ratio 19.0 8-20 Calcium 8.9 mg/dL 8.1-9.9 Total Protein 6.7 g/dL 6.2-8.1 Albumin 4.1 g/dL 3.2-5.2 Globulin 2.6 g/dL 2-4 Albumin/Globulin Ratio 1.6 1-3 Total Bilirubin 0.9 mg/dL 0.4-1.5 Alkaline Phosphatase 62 U/L 30-110 Alt 53 U/L 14-54 Ast 38 U/L 12-42 Egfr Non- 74.3 >60 Egfr 95.6 >60 45 Comp Metabolic Panel 01/03/2013 Sodium 129 mmol/L Low 133-145 Potassium 5.0 mmol/L 3.5-5.0 Chloride 95 mmol/L Low 101-111 Co2 Carbon Dioxide 30.0 mmol/L 22-32 Anion Gap 4.0 mmol/L 2-11 Glucose 96 mg/dL 70-100 Blood Urea Nitrogen 14 mg/dL 6-24 Creatinine 1.00 mg/dL 0.50-1.40 BUN/Creatinine Ratio 14.0 8-20 Calcium 9.1 mg/dL 8.1-9.9 Total Protein 6.2 g/dL 6.2-8.1 Albumin 4.0 g/dL 3.2-5.2 Globulin 2.2 g/dL 2-4 Albumin/Globulin Ratio 1.8 1-3 Total Bilirubin 0.8 mg/dL 0.4-1.5 Alkaline Phosphatase 64 U/L 30-110 Alt 69 U/L High 14-54 Ast 43 U/L High 12-42 Egfr Non- 74.3 >60 Egfr 95.6 >60 46 CBC Auto Diff 12/28/2012 White Blood Count 5.5 10^3/uL 4.8-10.8 Red Blood Count 4.64 10^6/uL 4.0-5.4 Hemoglobin 15.9 g/dL 14.0-18.0 Hematocrit 46 % 42-52 Mean Corpuscular Volume 98 fL High 80-94 Mean Corpuscular Hemoglobin 34 pg High 27-31 Mean Corpuscular HGB Conc 35 g/dL 31-36 Red Cell Distribution Width 14 % 10.5-15 Platelet Count 215 10^3/uL 150-450 Mean Platelet Volume 7 um3 Low 7.4-10.4 Abs Neutrophils 3.6 10^3/uL 1.5-7.7 Abs Lymphocytes 0.9 10^3/uL Low 1.0-4.8 Abs Monocytes 0.8 10^3/uL 0-0.8 Abs Eosinophils 0.1 10^3/uL 0-0.6 Abs Basophils 0 10^3/uL 0-0.2 Abs Nucleated RBC 0 10^3/uL Comp Metabolic Panel 12/28/2012 Sodium 129 mmol/L Low 133-145 Potassium 4.7 mmol/L 3.5-5.0 Chloride 94 mmol/L Low 101-111 Co2 Carbon Dioxide 31.0 mmol/L 22-32 Anion Gap 4.0 mmol/L 2-11 Glucose 99 mg/dL 70-100 Blood Urea Nitrogen 21 mg/dL 6-24 Creatinine 1.20 mg/dL 0.50-1.40 BUN/Creatinine Ratio 17.5 8-20 Calcium 9.2 mg/dL 8.1-9.9 Total Protein 6.5 g/dL 6.2-8.1 Albumin 4.0 g/dL 3.2-5.2 Globulin 2.5 g/dL 2-4 Albumin/Globulin Ratio 1.6 1-3 Total Bilirubin 0.8 mg/dL 0.4-1.5 Alkaline Phosphatase 60 U/L 30-110 Alt 75 U/L High 14-54 Ast 43 U/L High 12-42 Egfr Non- 60.2 >60 Egfr 77.4 >60 47 Manual Differential 12/28/2012 Neutrophil % 67 % 38-83 Lymphocytes % 17 % Low 25-47 Monocytes % 13 % 0-13 Eosinophils % 2 % 0-6 Reactive Lymph % 1 % 0-6 RBC Morphology Normal Normal Lipid Panel 09/07/2012 Triglycerides 43 mg/dL 40-200 Cholesterol 156 mg/dL Less than 200 HDL Cholesterol 48 mg/dL 40-60 48 Cholesterol/HDL Ratio 3.3 Average 1-4.44 LDL Cholesterol 99.4 Less Than 100 49 BMP Basic Metabolic Panel 09/07/2012 Sodium 134 mmol/L 133-145 Potassium 4.6 mmol/L 3.5-5.0 Chloride 101 mmol/L 101-111 Co2 Carbon Dioxide 30.0 mmol/L 22-32 Anion Gap 3.0 mmol/L 2-11 Glucose 88 mg/dL 70-100 Blood Urea Nitrogen 15 mg/dL 6-24 Creatinine 1.00 mg/dL 0.50-1.40 BUN/Creatinine Ratio 15.0 8-20 Calcium 9.2 mg/dL 8.1-9.9 Egfr Non- 74.3 >60 Egfr 95.6 >60 50 Urine Culture And 08/02/2012 Urine Culture (SEE NOTE) 51 Sensitivities CBC Auto Diff 06/29/2012 White Blood Count 5.0 10^3/uL 4.8-10.8 Red Blood Count 4.47 10^6/uL 4.0-5.4 Hemoglobin 14.0 g/dL 14.0-18.0 Hematocrit 42 % 42-52 Mean Corpuscular Volume 94 fL 80-94 Mean Corpuscular Hemoglobin 31 pg 27-31 Mean Corpuscular HGB Conc 33 g/dL 31-36 Red Cell Distribution Width 14 % 10.5-15 Platelet Count 350 10^3/uL 150-450 Mean Platelet Volume 7 um3 Low 7.4-10.4 Abs Neutrophils 3.6 10^3/uL 1.5-7.7 Abs Lymphocytes 0.8 10^3/uL Low 1.0-4.8 Abs Monocytes 0.5 10^3/uL 0-0.8 Abs Eosinophils 0 10^3/uL 0-0.6 Abs Basophils 0 10^3/uL 0-0.2 Abs Nucleated RBC 0 10^3/uL Granulocyte % 71.5 % 38-83 Lymphocyte % 16.2 % Low 25-47 Monocyte % 10.7 % High 1-9 Eosinophil % 1.0 % 0-6 Basophil % 0.6 % 0-2 Nucleated Red Blood Cells % 0.1 Laboratory test finding 06/29/2012 C Reactive Protein 0.7 mg/dL High Less than 0.5 Basic Metabolic Panel 06/29/2012 Sodium 132 mmol/L Low 133-145 Potassium 5.1 mmol/L High 3.5-5.0 Chloride 96 mmol/L Low 101-111 Co2 Carbon Dioxide 30.0 mmol/L 22-32 Anion Gap 6.0 mmol/L 2-11 Glucose 69 mg/dL Low 70-100 Blood Urea Nitrogen 13 mg/dL 6-24 Creatinine 0.90 mg/dL 0.50-1.40 BUN/Creatinine Ratio 14.4 8-20 Calcium 9.2 mg/dL 8.1-9.9 Egfr Non- 83.9 >60 Egfr 107.9 >60 52 Laboratory test finding 06/17/2012 Blood Culture (SEE NOTE) 53 CBC With Manual Diff 06/17/2012 White Blood Count 14.3 10^3/uL High 4.8- 10.8 Red Blood Count 4.67 10^6/uL 4.0-5.4 Hemoglobin 14.7 g/dL 14.0-18.0 Hematocrit 44 % 42-52 Mean Corpuscular Volume 93 fL 80-94 Mean Corpuscular Hemoglobin 32 pg High 27-31 Mean Corpuscular HGB Conc 34 g/dL 31-36 Red Cell Distribution Width 13 % 10.5-15 Platelet Count 219 10^3/uL 150-450 Mean Platelet Volume 7 um3 Low 7.4-10.4 Abs Neutrophils 12.4 10^3/uL High 1.5-7.7 Abs Lymphocytes 0.8 10^3/uL Low 1.0-4.8 Abs Monocytes 1.0 10^3/uL High 0-0.8 Abs Eosinophils 0.1 10^3/uL 0-0.6 Abs Basophils 0 10^3/uL 0-0.2 Abs Nucleated RBC 0 10^3/uL Neutrophil % 84 % High 38-83 Band % 1 % 0-8 Lymphocytes % 7 % Low 25-47 Monocytes % 7 % 0-13 Reactive Lymph % 1 % 0-6 Toxic Granulation 1+ Laboratory test finding 06/17/2012 C Reactive Protein 20.7 mg/dL High Less than 0.5 Erythrocyte Sed Rate 44 mm/Hr High 0-40 Lyme Disease Serology Negative Negative 54 Protein Electrophoresis Serum 06/17/2012 Albumin (Pep) 3.08 g/dL 3.0- 4.35 Alpha 1 Globulins 0.33 g/dL 0.09-0.33 Alpha 2 Globulin 0.83 g/dL 0.59-1.18 Beta Globulin 0.73 g/dL 0.68-1.02 Gamma Globulin 1.23 g/dL 0.76-1.60 Albumin % (Pep) 49.7 % 46-63 Alpha 1 Globulins % 5.3 % 1.2-5.3 Alpha 2 Globulin % 13.4 % 9-17 Beta Globulin % 11.8 % 10-16 Gamma Globulin % 19.8 % 12-22 Albumin/Globulin Ratio 1.0 0.9-2.0 Total Protein (Pep) 6.2 g/dL 6.2-8.1 Spep Comments (SEE NOTE) 55 Laboratory test finding 06/17/2012 Osmolality Serum 281 mOsm/kg 281-297 Basic Metabolic Panel 06/17/2012 Sodium 127 mmol/L Low 133-145 Potassium 4.3 mmol/L 3.5-5.0 Chloride 92 mmol/L Low 101-111 Co2 Carbon Dioxide 27.0 mmol/L 22-32 Anion Gap 8.0 mmol/L 2-11 Glucose 114 mg/dL High 70-100 Blood Urea Nitrogen 14 mg/dL 6-24 Creatinine 0.90 mg/dL 0.50-1.40 BUN/Creatinine Ratio 15.6 8-20 Calcium 9.2 mg/dL 8.1-9.9 Egfr Non- 83.9 >60 Egfr 107.9 >60 56 Comp Metabolic Panel 06/12/2012 Sodium 125 mmol/L Low 133-145 Potassium 4.6 mmol/L 3.5-5.0 Chloride 91 mmol/L Low 101-111 Co2 Carbon Dioxide 27.0 mmol/L 22-32 Anion Gap 7.0 mmol/L 2-11 Glucose 117 mg/dL High 70-100 Blood Urea Nitrogen 14 mg/dL 6-24 Creatinine 0.80 mg/dL 0.50-1.40 BUN/Creatinine Ratio 17.5 8-20 Calcium 8.8 mg/dL 8.1-9.9 Total Protein 6.4 g/dL 6.2-8.1 Albumin 3.5 g/dL 3.2-5.2 Globulin 2.9 g/dL 2-4 Albumin/Globulin Ratio 1.2 1-3 Total Bilirubin 0.9 mg/dL 0.4-1.5 Alkaline Phosphatase 62 U/L 30-110 Alt 25 U/L 14-54 Ast 24 U/L 12-42 Egfr Non- 96.1 >60 Egfr 123.6 >60 57 CBC With Manual Diff 06/12/2012 White Blood Count 11.0 10^3/uL High 4.8- 10.8 Red Blood Count 4.36 10^6/uL 4.0-5.4 Hemoglobin 14.1 g/dL 14.0-18.0 Hematocrit 41 % Low 42-52 Mean Corpuscular Volume 95 fL High 80-94 Mean Corpuscular Hemoglobin 32 pg High 27-31 Mean Corpuscular HGB Conc 34 g/dL 31-36 Red Cell Distribution Width 13 % 10.5-15 Platelet Count 197 10^3/uL 150-450 Mean Platelet Volume 8 um3 7.4-10.4 Abs Neutrophils 9.3 10^3/uL High 1.5-7.7 Abs Lymphocytes 0.6 10^3/uL Low 1.0-4.8 Abs Monocytes 1.0 10^3/uL High 0-0.8 Abs Eosinophils 0 10^3/uL 0-0.6 Abs Basophils 0.1 10^3/uL 0-0.2 Abs Nucleated RBC 0 10^3/uL Neutrophil % 82 % 38-83 Lymphocytes % 7 % Low 25-47 Monocytes % 10 % 0-13 Eosinophils % 1 % 0-6 RBC Morphology Normal Normal 1 Desirable <150 Borderline high 150-199 High 200-499 Very High >500 2 Desirable <200 Borderline high 200-239 High >239 3 Low <40 Desirable: 40-60 High: >60 4 Desirable: <100 mg/dL Near Optimal: 100-129 mg/dL Borderline High: 130-159 mg/dL High: 160-189 mg/dL Very High: >189 mg/dL 5 Because ethnic data is not always readily available, this report includes an eGFR for both -Americans and non- Americans. The National Kidney Disease Education Program (NKDEP) does not endorse the use of the MDRD equation for patients that are not between the ages of 18 and 70, are , have extremes of body size, muscle mass, or nutritional status, or are non- or non-. According to the National Kidney Foundation, irrespective of diagnosis, the stage of the disease is based on the level of kidney function: Stage Description GFR(mL/min/1.73 m(2)) 1 Kidney damage with normal or decreased GFR 90 2 Kidney damage with mild decrease in GFR 60-89 3 Moderate decrease in GFR 30-59 4 Severe decrease in GFR 15-29 5 Kidney failure <15 (or dialysis) 6 Serum levels of PSA measured using the [employer]brite[employer] immunoassay should not be interpreted as absolute evidence of the presence or absence of disease. The PSA value should be used in conjunction with other pertinent clinical diagnostic procedures. The values obtained with different assay methods or kits cannot be used interchangeably. 7 Because ethnic data is not always readily available, this report includes an eGFR for both -Americans and non- Americans. The National Kidney Disease Education Program (NKDEP) does not endorse the use of the MDRD equation for patients that are not between the ages of 18 and 70, are , have extremes of body size, muscle mass, or nutritional status, or are non- or non-. According to the National Kidney Foundation, irrespective of diagnosis, the stage of the disease is based on the level of kidney function: Stage Description GFR(mL/min/1.73 m(2)) 1 Kidney damage with normal or decreased GFR 90 2 Kidney damage with mild decrease in GFR 60-89 3 Moderate decrease in GFR 30-59 4 Severe decrease in GFR 15-29 5 Kidney failure <15 (or dialysis) 8 Test Performed by: [place] [address] [address] Traffic Control Technician: Cj Chatman II, M.D., Ph.D. 9 Normal Range 180 to 914 Indeterminate Range 145 to 180 Deficient Range <145 10 Desirable <150 Borderline high 150-199 High 200-499 Very High >500 11 Desirable <200 Borderline high 200-239 High >239 12 Low <40 Desirable: 40-60 High: >60 13 Desirable: <100 mg/dL Near Optimal: 100-129 mg/dL Borderline High: 130-159 mg/dL High: 160-189 mg/dL Very High: >189 mg/dL 14 FASTING 10 HOUR 15 SEE RESULT BELOW Name: JENNIFERLUDIVINA W : [address]: Pablo Graf MD Acct: [id number] Unit: [id number] AGE: 69 Location: [facility] Re07/26/14 SEX: M Status: REG REF SPEC: [id number] ISAIAH: 07/26/[address]: Pablo Graf MD REQ: [id number] RECD: 07/26/14 STATUS: COMP _ SOURCE: URINE SPDESC: ORDERED: Urine Culture Urine Source: Clean Catch Procedure Result Verified Site Urine Culture Final 07/28/14- 0955 ML No Growth Day 2 (<1,000 CFU/mL) * ML - MAIN LAB ([facility]) . END OF REPORT * ML=Testing performed at Main Lab DEPARTMENT OF PATHOLOGY, [facility] [address] [place], [place] [address] Isaiah Garg M.D. Director [facility] # [id number] 16 *Ascorbic acid is present which may interfere with detection of blood. 17 RUN DATE: 06/30/14 [facility] LAB LIVE PAGE 1 RUN TIME: [address] [place] [id number] Specimen Inquiry Name: LUDIVINA RODRIGUEZ : [address]: Pablo Graf MD Acct: [id number] Unit: [id number] AGE: 69 [facility] SEX: M Status: REG REF SPEC: [id number] ISAIAH: 06/28/[address]: Pablo Graf MD REQ: [id number] RECD: 06/28/14 STATUS: COMP _ SOURCE: URINE SPDESC: ORDERED: Urine Culture QUERIES: Provider Requisition # [id number] Urine Source: Clean Catch Procedure Result Verified Site Urine Culture Final 06/30/14- 1008 ML No Growth Day 2 (<1,000 CFU/mL) * ML - MAIN LAB ([facility]) . END OF REPORT * ML=Testing performed at Main Lab DEPARTMENT OF PATHOLOGY, [address] [place] [address] Isaiah Garg M.D. Director [facility] # [id number] 18 *Ascorbic acid is present which may interfere with detection of blood. 19 Because ethnic data is not always readily available, this report includes an eGFR for both -Americans and non- Americans. The National Kidney Disease Education Program (NKDEP) does not endorse the use of the MDRD equation for patients that are not between the ages of 18 and 70, are , have extremes of body size, muscle mass, or nutritional status, or are non- or non-. According to the National Kidney Foundation, irrespective of diagnosis, the stage of the disease is based on the level of kidney function: Stage Description GFR(mL/min/1.73 m(2)) 1 Kidney damage with normal or decreased GFR 90 2 Kidney damage with mild decrease in GFR 60-89 3 Moderate decrease in GFR 30-59 4 Severe decrease in GFR 15-29 5 Kidney failure <15 (or dialysis) 20 Low risk: <1.00 Average risk: 1.00-3.00 High risk: >3.00 21 Because ethnic data is not always readily available, this report includes an eGFR for both -Americans and non- Americans. The National Kidney Disease Education Program (NKDEP) does not endorse the use of the MDRD equation for patients that are not between the ages of 18 and 70, are , have extremes of body size, muscle mass, or nutritional status, or are non- or non-. According to the National Kidney Foundation, irrespective of diagnosis, the stage of the disease is based on the level of kidney function: Stage Description GFR(mL/min/1.73 m(2)) 1 Kidney damage with normal or decreased GFR 90 2 Kidney damage with mild decrease in GFR 60-89 3 Moderate decrease in GFR 30-59 4 Severe decrease in GFR 15-29 5 Kidney failure <15 (or dialysis) 22 Acute inflammation: >10.00 23 Consistent with previous results on 04/30/14. 24 Because ethnic data is not always readily available, this report includes an eGFR for both -Americans and non- Americans. The National Kidney Disease Education Program (NKDEP) does not endorse the use of the MDRD equation for patients that are not between the ages of 18 and 70, are , have extremes of body size, muscle mass, or nutritional status, or are non- or non-. According to the National Kidney Foundation, irrespective of diagnosis, the stage of the disease is based on the level of kidney function: Stage Description GFR(mL/min/1.73 m(2)) 1 Kidney damage with normal or decreased GFR 90 2 Kidney damage with mild decrease in GFR 60-89 3 Moderate decrease in GFR 30-59 4 Severe decrease in GFR 15-29 5 Kidney failure <15 (or dialysis) 25 Acute inflammation: >10.00 26 Because ethnic data is not always readily available, this report includes an eGFR for both -Americans and non- Americans. The National Kidney Disease Education Program (NKDEP) does not endorse the use of the MDRD equation for patients that are not between the ages of 18 and 70, are , have extremes of body size, muscle mass, or nutritional status, or are non- or non-. According to the National Kidney Foundation, irrespective of diagnosis, the stage of the disease is based on the level of kidney function: Stage Description GFR(mL/min/1.73 m(2)) 1 Kidney damage with normal or decreased GFR 90 2 Kidney damage with mild decrease in GFR 60-89 3 Moderate decrease in GFR 30-59 4 Severe decrease in GFR 15-29 5 Kidney failure <15 (or dialysis) 27 Acute inflammation: >10.00 28 Consistent with previous results on 04/09/14. 29 Because ethnic data is not always readily available, this report includes an eGFR for both -Americans and non- Americans. The National Kidney Disease Education Program (NKDEP) does not endorse the use of the MDRD equation for patients that are not between the ages of 18 and 70, are , have extremes of body size, muscle mass, or nutritional status, or are non- or non-. According to the National Kidney Foundation, irrespective of diagnosis, the stage of the disease is based on the level of kidney function: Stage Description GFR(mL/min/1.73 m(2)) 1 Kidney damage with normal or decreased GFR 90 2 Kidney damage with mild decrease in GFR 60-89 3 Moderate decrease in GFR 30-59 4 Severe decrease in GFR 15-29 5 Kidney failure <15 (or dialysis) 30 Acute inflammation: >10.00 31 Because ethnic data is not always readily available, this report includes an eGFR for both -Americans and non- Americans. The National Kidney Disease Education Program (NKDEP) does not endorse the use of the MDRD equation for patients that are not between the ages of 18 and 70, are , have extremes of body size, muscle mass, or nutritional status, or are non- or non-. According to the National Kidney Foundation, irrespective of diagnosis, the stage of the disease is based on the level of kidney function: Stage Description GFR(mL/min/1.73 m(2)) 1 Kidney damage with normal or decreased GFR 90 2 Kidney damage with mild decrease in GFR 60-89 3 Moderate decrease in GFR 30-59 4 Severe decrease in GFR 15-29 5 Kidney failure <15 (or dialysis) 32 Acute inflammation: >10.00 33 RUN DATE: 12/21/13 [facility] LAB LIVE PAGE 1 RUN TIME: [address] [place] [id number] Specimen Inquiry Name: JENNIFERLUDIVINA : [address]: Pablo Graf MD Acct: [id number] Unit: [id number] AGE: 68 Location: [facility] Re12/19/13 SEX: M Status: REG REF SPEC: [id number] ISAIAH: 12/19/[address]: Pablo Graf MD REQ: [id number] RECD: 12/19/13 STATUS: COMP _ SOURCE: URINE SPDESC: ORDERED: Urine Culture QUERIES: Medent Number [id number] Urine Source: Clean Catch Procedure Result Verified Site Urine Culture Final 12/21/13- 926 ML Organism 1 ESBL ESCHERICHIA COLI Clemons Count 75-100,000 (Many) CFU/ML Consistent with previous results. 1. ESBL ESCHERICHIA COLI M.I.C. RX --------- ------ Ampicillin >=32 R Cefazolin >=64 R Cefepime R Ceftriaxone R Ciprofloxacin >=4 R Gentamicin <=1 S Levofloxacin >=8 R Meropenem <=0.25 S Nitrofurantoin 32 S Tetracycline <=1 S Pipercillin/Tazobactam <=4 S Trimethoprim/Sulfamethoxazole <=20 S Amoxicillin/Clavulanic Acid 4 S Aztreonam R Contact the Microbiology Department for any additional antibiotic reporting. END OF REPORT * ML=Testing performed at Main Lab DEPARTMENT OF PATHOLOGY, [address] [place] [address] Isaiah Garg M.D. Director [facility] # [id number] 34 RUN DATE: 12/18/13 [facility] LAB LIVE PAGE 1 RUN TIME: [address] [place] [address] Specimen Inquiry Name: LUDIVINA RODRIGUEZ : [address]: Pablo Graf MD Acct: [id number] Unit: [id number] AGE: 68 Location: [facility] Re12/16/13 SEX: M Status: REG REF SPEC: [id number] ISAIAH: 12/16/13 [facility] DR: Pablo Graf MD REQ: [id number] RECD: 12/16/13 STATUS: MERRILL DANIEL DR: Bandar Dowell MD _ SOURCE: URINE SPDESC: ORDERED: Urine Culture QUERIES: Medent Number [id number] Urine Source: Clean Catch Procedure Result Verified Site Urine Culture Final 12/18/13- 0930 ML No Growth Day 2 (<1,000 CFU/mL) END OF REPORT * ML=Testing performed at Main Lab DEPARTMENT OF PATHOLOGY, [facility] [place] [address] Isaiah Garg M.D. Director [facility] # [id number] 35 RUN DATE: 11/26/13 [facility] LAB LIVE PAGE 1 RUN TIME: [address] [facility] [employer] [place], [place] [address] Specimen Inquiry Name: LUDIVINA RODRIGUEZ : [address]: Pablo Graf MD Acct: [id number] Unit: [id number] AGE: 68 Location: [facility] Re11/24/13 SEX: M Status: REG REF SPEC: [id number] ISAIAH: 11/24/13 [facility] DR: Pablo Graf MD REQ: [id number] RECD: 11/24/13 STATUS: COMP MARÍA DR: Bandar Dowell MD _ SOURCE: URINE SPDESC: ORDERED: Urine Culture QUERIES: Medent Number [id number] Procedure Result Verified Site Urine Culture Final 11/26/13- 0752 ML No Growth Day 2 (<1,000 CFU/mL) END OF REPORT * ML=Testing performed at Main Lab DEPARTMENT OF PATHOLOGY, [address] [place] [address] Isaiah Garg M.D. Director [facility] # [id number] 36 Acute inflammation: >10.00 37 RUN DATE: 09/18/13 [facility] LAB LIVE PAGE 1 RUN TIME: [address] [place], [place] [address] Specimen Inquiry Name: LUDIVINA RODRIGUEZ : [address]: Rhonda Dowell MD Acct: [id number] Unit: [id number] AGE: 68 Location: [facility] Re09/13/13 SEX: M Status: REG REF SPEC: [id number] ISAIAH: 09/13/13 [facility] DR: Bandar Dowell MD REQ: [id number] RECD: 09/13/13 STATUS: MERRILL DANIEL DR: Pablo Graf MD _ SOURCE: BLOOD,VENO SPDESC: ORDERED: Blood Cult QUERIES: Medent Number [id number] Procedure Result Verified Site Aerobic Culture Bottle Final 09/18/13- 1146 ML No Growth Day 5 Anaerobic Culture Bottle Final 09/18/13- 1146 ML No Growth Day 5 END OF REPORT * ML=Testing performed at Main Lab DEPARTMENT OF PATHOLOGY, [facility] [place], [place] [address] Isaiah Garg M.D. Director [facility] # [id number] 38 RUN DATE: 09/15/13 [facility] LAB LIVE PAGE 1 RUN TIME: [address] [facility] [employer] [place], [place] [address] Specimen Inquiry Name: LUDIVINA RODRIGUEZ : [address]: Rhonda Dowell MD Acct: [id number] Unit: [id number] AGE: 68 Location: [facility] Re09/13/13 SEX: M Status: REG REF SPEC: [id number] ISAIAH: 09/13/13-1126 [facility] DR: Bandar Dowell MD REQ: [id number] RECD: 09/13/131542 STATUS: COMP _ SOURCE: URINE SPDESC: ORDERED: Urine Culture QUERIES: Medent Number [id number] Procedure Result Verified Site Urine Culture Final 09/15/13- 1016 ML Organism 1 ESBL ESCHERICHIA COLI Clemons Count >100,000 (Many) CFU/ML ESBL E. COLI: Consistent with previous results. 1. ESBL ESCHERICHIA COLI M.I.C. RX --------- ------ Ampicillin >=32 R Cefazolin >=64 R Cefepime R Ceftriaxone >=64 R Ciprofloxacin >=4 R Gentamicin <=1 S Levofloxacin >=8 R Meropenem <=0.25 S Nitrofurantoin 64 I Tetracycline <=1 S Pipercillin/Tazobactam <=4 S Trimethoprim/Sulfamethoxazole <=20 S Amoxicillin/Clavulanic Acid 4 S Aztreonam R Contact the Microbiology Department for any additional antibiotic reporting. END OF REPORT * ML=Testing performed at Main Lab DEPARTMENT OF PATHOLOGY, [address] [place] [address] Isaiah Garg M.D. Director [facility] # [id number] 39 Acute inflammation: >10.00 40 Because ethnic data is not always readily available, this report includes an eGFR for both -Americans and non- Americans. The National Kidney Disease Education Program (NKDEP) does not endorse the use of the MDRD equation for patients that are not between the ages of 18 and 70, are , have extremes of body size, muscle mass, or nutritional status, or are non- or non-. According to the National Kidney Foundation, irrespective of diagnosis, the stage of the disease is based on the level of kidney function: Stage Description GFR(mL/min/1.73 m(2)) 1 Kidney damage with normal or decreased GFR 90 2 Kidney damage with mild decrease in GFR 60-89 3 Moderate decrease in GFR 30-59 4 Severe decrease in GFR 15-29 5 Kidney failure <15 (or dialysis) 41 Because ethnic data is not always readily available, this report includes an eGFR for both -Americans and non- Americans. The National Kidney Disease Education Program (NKDEP) does not endorse the use of the MDRD equation for patients that are not between the ages of 18 and 70, are , have extremes of body size, muscle mass, or nutritional status, or are non- or non-. According to the National Kidney Foundation, irrespective of diagnosis, the stage of the disease is based on the level of kidney function: Stage Description GFR(mL/min/1.73 m(2)) 1 Kidney damage with normal or decreased GFR 90 2 Kidney damage with mild decrease in GFR 60-89 3 Moderate decrease in GFR 30-59 4 Severe decrease in GFR 15-29 5 Kidney failure <15 (or dialysis) 42 Because ethnic data is not always readily available, this report includes an eGFR for both -Americans and non- Americans. The National Kidney Disease Education Program (NKDEP) does not endorse the use of the MDRD equation for patients that are not between the ages of 18 and 70, are , have extremes of body size, muscle mass, or nutritional status, or are non- or non-. According to the National Kidney Foundation, irrespective of diagnosis, the stage of the disease is based on the level of kidney function: Stage Description GFR(mL/min/1.73 m(2)) 1 Kidney damage with normal or decreased GFR 90 2 Kidney damage with mild decrease in GFR 60-89 3 Moderate decrease in GFR 30-59 4 Severe decrease in GFR 15-29 5 Kidney failure <15 (or dialysis) 43 RUN DATE: 02/26/13 [facility] LAB LIVE PAGE 1 RUN TIME: [address] [place] [address] Specimen Inquiry Name: JENNIFERLUDIVINA : [address]: Martin Babb MD Acct: [id number] Unit: [id number] AGE: 67 Location: [facility] Re02/24/13 SEX: M Status: REG REF SPEC: [id number] ISAIAH: 02/24/13-163 [facility] DR: Martin Babb MD REQ: [id number] RECD: 02/24/13 STATUS: COMP MARÍA DR: Bandar Dowell MD _ SOURCE: URINE SPDESC: ORDERED: Urine Culture QUERIES: Medent Number [id number] Procedure Result Verified Site Urine Culture Final 02/26/13- 1240 ML No Growth Day 2 (<1,000 CFU/mL) END OF REPORT * ML=Testing performed at Main Lab DEPARTMENT OF PATHOLOGY, [facility] [place], [place] [address] Isaiah Garg M.D. Director [facility] Permit #[id number] 44 RUN DATE: 02/24/13 [facility] LAB LIVE PAGE 1 RUN TIME: [address] [facility] [employer] [place], [place] [address] Specimen Inquiry Name: LUDIVINA RODRIGUEZ : [address]: Martin Babb MD Acct: [id number] Unit: [id number] AGE: 67 Location: [facility] Re02/24/13 SEX: M Status: REG REF SPEC: [id number] ISAIAH: 02/24/13163 [facility] DR: Martin Babb MD REQ: [id number] RECD: 02/24/13 STATUS: MERRILL DANIEL DR: Bandar Dowell MD _ SOURCE: JAGDISH SPDES: ORDERED: Rapid Flu A B QUERIES: Medent Number [id number] Procedure Result Verified Site Rapid Influenza A B Antigen Final 02/24/13- 2035 ML Organism 1 Negative Influenza A Organism 2 Negative Influenza B Antigen testing by enzyme immunoassay. Cell culture testing can be performed to confirm negative test results and to assist in detecting other viruses that can produce similar clinical symptoms. Please notify Microbiology Lab if further testing is desired. END OF REPORT * ML=Testing performed at Main Lab DEPARTMENT OF PATHOLOGY, [address] [place] [address] Isaiah Garg M.D. Director [facility] Permit #[id number] 45 Because ethnic data is not always readily available, this report includes an eGFR for both -Americans and non- Americans. The National Kidney Disease Education Program (NKDEP) does not endorse the use of the MDRD equation for patients that are not between the ages of 18 and 70, are , have extremes of body size, muscle mass, or nutritional status, or are non- or non-. According to the National Kidney Foundation, irrespective of diagnosis, the stage of the disease is based on the level of kidney function: Stage Description GFR(mL/min/1.73 m(2)) 1 Kidney damage with normal or decreased GFR 90 2 Kidney damage with mild decrease in GFR 60-89 3 Moderate decrease in GFR 30-59 4 Severe decrease in GFR 15-29 5 Kidney failure <15 (or dialysis) 46 Because ethnic data is not always readily available, this report includes an eGFR for both -Americans and non- Americans. The National Kidney Disease Education Program (NKDEP) does not endorse the use of the MDRD equation for patients that are not between the ages of 18 and 70, are , have extremes of body size, muscle mass, or nutritional status, or are non- or non-. According to the National Kidney Foundation, irrespective of diagnosis, the stage of the disease is based on the level of kidney function: Stage Description GFR(mL/min/1.73 m(2)) 1 Kidney damage with normal or decreased GFR 90 2 Kidney damage with mild decrease in GFR 60-89 3 Moderate decrease in GFR 30-59 4 Severe decrease in GFR 15-29 5 Kidney failure <15 (or dialysis) 47 Because ethnic data is not always readily available, this report includes an eGFR for both -Americans and non- Americans. The National Kidney Disease Education Program (NKDEP) does not endorse the use of the MDRD equation for patients that are not between the ages of 18 and 70, are , have extremes of body size, muscle mass, or nutritional status, or are non- or non-. According to the National Kidney Foundation, irrespective of diagnosis, the stage of the disease is based on the level of kidney function: Stage Description GFR(mL/min/1.73 m(2)) 1 Kidney damage with normal or decreased GFR 90 2 Kidney damage with mild decrease in GFR 60-89 3 Moderate decrease in GFR 30-59 4 Severe decrease in GFR 15-29 5 Kidney failure <15 (or dialysis) 48 HDL Interpretation: Undesirable: High Risk: Less than 40 mg/dL Desirable: Low Risk: Greater than 60 mg/dL 49 LDL Interpretation: Low Risk Optimal Level: LDL Less than 100 mg/dL Near or Above Optimal: LDL 100-129 mg/dL Borderline High Risk: LDL 130-159 mg/dL High Risk: LDL 160-189 mg/dL Very High Risk: LDL Greater than 189 mg/dL 50 Because ethnic data is not always readily available, this report includes an eGFR for both -Americans and non- Americans. The National Kidney Disease Education Program (NKDEP) does not endorse the use of the MDRD equation for patients that are not between the ages of 18 and 70, are , have extremes of body size, muscle mass, or nutritional status, or are non- or non-. According to the National Kidney Foundation, irrespective of diagnosis, the stage of the disease is based on the level of kidney function: Stage Description GFR(mL/min/1.73 m(2)) 1 Kidney damage with normal or decreased GFR 90 2 Kidney damage with mild decrease in GFR 60-89 3 Moderate decrease in GFR 30-59 4 Severe decrease in GFR 15-29 5 Kidney failure <15 (or dialysis) 51 RUN DATE: 08/05/12 [facility] LAB LIVE PAGE 1 RUN TIME: [address] [place] [address] Specimen Inquiry Name: JENNIFERLUDIVINA : [address]: Dayday Casey MD Acct: [id number] Unit: [id number] AGE: 67 Location: [facility] Re08/02/12 SEX: M Status: REG REF SPEC: [id number] ISAIAH: 08/02/12-1499 [facility] DR: Dayday Casey MD REQ: [id number] RECD: 08/02/12 STATUS: MERRILL DANIEL DR: Bandar Dowell MD _ SOURCE: URINE SPDESC: ORDERED: Urine Culture QUERIES: Urine Source: Clean Catch Procedure Result Verified Site Urine Culture Final 08/05/12- 921 ML Organism 1 ESBL ESCHERICHIA COLI Clemons Count 75-100,000 (Many) CFU/ML Consistent with previous results. This isolate is an Extended Spectrum Beta-Lactamase Newspaper Writer (ESBL) strain, and as such is considered resistant for all penicillins, cephalosporins and aztreonam. 1. ESBL ESCHERICHIA COLI M.I.C. RX --------- ------ Ampicillin >=32 R Cefazolin >=64 R Cefepime R Ceftriaxone >=64 R Ciprofloxacin >=4 R Gentamicin <=1 S Imipenem <=0.25 S Levofloxacin >=8 R Meropenem <=0.25 S Nitrofurantoin 64 I Tetracycline <=1 S Pipercillin/Tazobactam <=4 S Trimethoprim/Sulfamethoxazole <=20 S Amoxicillin/Clavulanic Acid 4 S Aztreonam R CONTINUED ON NEXT PAGE * ML=Testing performed at Main Lab DEPARTMENT OF PATHOLOGY, [facility] [place], [place] [address] Isaiah Garg M.D. Director [facility] Permit #[id number] RUN DATE: 08/05/12 [facility] LAB LIVE PAGE 2 RUN TIME: [address] [facility] [employer] [place], [place] [address] Specimen Inquiry Patient: LUDIVINA RODRIGUEZ [id number] (Continued) Specimen: [id number] Collected: 08/02/12-1499 Received: 08/02/12-1624 (Continued) Procedure Result Verified Site Urine Culture Final (continued) Contact the Microbiology Department for any additional antibiotic reporting. END OF REPORT * ML=Testing performed at Main Lab DEPARTMENT OF PATHOLOGY, [address] [place] [address] Isaiah Garg M.D. Director [facility] Permit #[id number] 52 Because ethnic data is not always readily available, this report includes an eGFR for both -Americans and non- Americans. The National Kidney Disease Education Program (NKDEP) does not endorse the use of the MDRD equation for patients that are not between the ages of 18 and 70, are , have extremes of body size, muscle mass, or nutritional status, or are non- or non-. According to the National Kidney Foundation, irrespective of diagnosis, the stage of the disease is based on the level of kidney function: Stage Description GFR(mL/min/1.73 m(2)) 1 Kidney damage with normal or decreased GFR 90 2 Kidney damage with mild decrease in GFR 60-89 3 Moderate decrease in GFR 30-59 4 Severe decrease in GFR 15-29 5 Kidney failure <15 (or dialysis) 53 RUN DATE: 06/22/12 [facility] LAB LIVE PAGE 1 RUN TIME: [address] [place] [address] Specimen Inquiry Name: LUDIVINA RODRIGUEZ : [address]: Rhonda Dowell MD Acct: [id number] Unit: [id number] AGE: 67 Location: [facility] Re06/17/12 SEX: M Status: REG REF SPEC: [id number] ISAIAH: 06/17/[address]: Bandar Dowell MD REQ: [id number] RECD: 06/17/12 STATUS: COMP _ SOURCE: BLOOD,VENO SPDESC: ORDERED: Blood Cult QUERIES: Medent Number [id number] Procedure Result Verified Site Aerobic Culture Bottle Final 06/22/12919 ML No Growth Day 5 Anaerobic Culture Bottle Final 06/22/12919 ML No Growth Day 5 END OF REPORT * ML=Testing performed at Main Lab DEPARTMENT OF PATHOLOGY, [address] [place] [address] Isaiah Garg M.D. Director [facility] Permit #[id number] 54 Serologic response to B. burgdorferi infection is not detected, but cannot rule out early infection during which low or undetectable antibody levels to B. burgdorferi may be present. If clinically indicated, a new serum specimen should be submitted in 7-14 days. Test Performed by: [address] [address] [address] Traffic Control Technician: Albert Soler III, M.D. 55 Normal serum electrophoretic pattern. 56 Because ethnic data is not always readily available, this report includes an eGFR for both -Americans and non- Americans. The National Kidney Disease Education Program (NKDEP) does not endorse the use of the MDRD equation for patients that are not between the ages of 18 and 70, are , have extremes of body size, muscle mass, or nutritional status, or are non- or non-. According to the National Kidney Foundation, irrespective of diagnosis, the stage of the disease is based on the level of kidney function: Stage Description GFR(mL/min/1.73 m(2)) 1 Kidney damage with normal or decreased GFR 90 2 Kidney damage with mild decrease in GFR 60-89 3 Moderate decrease in GFR 30-59 4 Severe decrease in GFR 15-29 5 Kidney failure <15 (or dialysis) 57 Because ethnic data is not always readily available, this report includes an eGFR for both -Americans and non- Americans. The National Kidney Disease Education Program (NKDEP) does not endorse the use of the MDRD equation for patients that are not between the ages of 18 and 70, are , have extremes of body size, muscle mass, or nutritional status, or are non- or non-. According to the National Kidney Foundation, irrespective of diagnosis, the stage of the disease is based on the level of kidney function: Stage Description GFR(mL/min/1.73 m(2)) 1 Kidney damage with normal or decreased GFR 90 2 Kidney damage with mild decrease in GFR 60-89 3 Moderate decrease in GFR 30-59 4 Severe decrease in GFR 15-29 5 Kidney failure <15 (or dialysis) Procedures Date CPT Code Description Status 04/28/2016 Diabetic Foot Exam Completed Encounters Type Date Location Provider CPT E/M Dx Office Visit 11/03/2016 3:20p [facility] Internal Medicine Bandar Dowell, [address] R03.0 - Biju Mccollum,FACP B35.1 Z12.11 Office Visit 09/16/2016 2:40p [facility] [place] [address] B35.8 B35.1 Office Visit 09/14/2016 1:00p [facility] [place] [address] B35.8 B35.1 Office Visit 08/28/2016 10:00a [facility] Internal Medicine Bandar Dowell, 77277 L30.9 - [place] Chang Mccollum,FACP R03.0 Office Visit 06/24/2016 8:00a [facility] Internal Medicine Sabino Bernard, INPUT OUTPUT CLERK [address] M25.[address] - [address] Office Visit 02/13/2016 4:40p [facility] Internal Medicine Bandar Dowell, 34288 M72.2 - [place] Chang Mccollum,FACP Office Visit 09/27/2015 3:00p [facility] Internal Medicine Bandar Dowell, 85049 Z00.00 - [place] Chang Mccollum,FACP N41.1 B35.1 Z12.5 Z12.11 E87.1 Z23 Office Visit 07/30/2014 2:00p [facility] Gisela Graf, 85068 601.1 Infectious Diseases M.D. Office Visit 06/28/2014 1:20p [facility] Gisela Graf, 27894 601.1 Infectious Diseases M.D. Office Visit 05/14/2014 2:40p [facility] Gisela Graf, 13708 601.1 Infectious Diseases M.D. Office Visit 04/11/2014 4:20p [facility] Gisela Graf, 58156 601.1 Infectious Diseases M.D. Office Visit 03/19/2014 4:00p [facility] Lukas Graf, 93869 601.1 Infectious Diseases M.D. Office Visit 01/22/2014 3:00p [facility] Lukas Graf, 29329 601.1 Infectious Diseases M.D. Office Visit 01/01/2014 3:20p [facility] Gisela Graf, 94847 601.1 Infectious Diseases M.D. Office Visit 11/16/2013 4:00p [facility] For Pablo Graf, 93836 601.1 Infectious Diseases M.D. Office Visit 10/19/2013 1:20p [facility] For Pablo Graf, 42186 601.1 Infectious Diseases M.D. 780.79 Office Visit 09/18/2013 4:35p [facility] For Pablo Graf, 09532 780.60 Infectious Diseases M.D. Office Visit 09/13/2013 10:10a [facility] Internal Medicine Bandar Dowell, 77716 780.60 - Biju Mccollum,FAC 789.04 Office Visit 07/18/2013 3:00p [facility] Rios Negrete, 38742 721.0 Of Bandoleer Packer M.D. Office Visit 07/17/2013 1:40p [facility] Gisela Gann 08387 601.1 Infectious Diseases Veda Graf Office Visit 06/27/2013 4:30p [facility] Internal Medicine - Florina Gamboa, 85039 723.1 Biju N.P. 733.90 Office Visit 05/10/2013 2:20p [facility] Gisela Graf, 04416 601.1 Infectious Diseases M.D. Office Visit 03/07/2013 9:10a [facility] Gisela Graf, 83799 601.1 Infectious Diseases M.D. 780.60 Office Visit 02/24/2013 3:40p [facility] Internal Medicine Bandar Dowell, 05318 780.60 - Biju Mccollum,[facility] Office Visit 02/01/2013 1:20p [facility] Gisela Graf, 37449 601.1 Infectious Diseases M.D. Office Visit 01/03/2013 9:10a [facility] Gisela Graf, 88098 573.8 Infectious Diseases M.D. 573.8 601.1 601.1 Office Visit 12/07/2012 4:20p [facility] Gisela Graf, 78755 601.1 Infectious Diseases M.D. Office Visit 11/24/2012 4:20p [facility] Internal Medicine Bandar Dowell, 72997 601.1 - Biju Mccollum,FACP 728.71 Office Visit 08/17/2012 4:00p [facility] Pablo Graf, 97608 601.0 Infectious Diseases M.D. Office Visit 07/04/2012 2:40p [facility] Internal Medicine Bandar Dowell, 07534 601.0 - Biju Mccollum,FACP 272.1 276.1 Office Visit 06/24/2012 9:30a [facility] Pablo Graf, 26974 601.0 Infectious Diseases M.DBennett 786.2 Office Visit 06/20/2012 3:20p [facility] Internal Medicine Bandar Dowell, 90022 601.0 - Biju Mccollum,FACP 276.1 786.2 Office Visit 06/16/2012 4:20p [facility] Internal Medicine Bandar Dowell, 23038 780.60 - Biju Mcclolum,FACP 786.2 276.1 Plan of Care 03/09/2017 - Bandar Dowell M.D.,FACPZ00.01 Encounter for general adult medical exam w abnormal findingsComments:Flu vaccine received in the fall. Routine Health Maintenance up to date. Depression screen: On fileADL screen: negativeAdvance directives: HCP discussed, form to be obtained.Cognitive impairment screen: negative Reviewed [facility] DM/HM form. Come in for a Tetanus vaccine if you have a burn or wound.M50.10 Cervical disc disorder w radiculopathy, unsp cervical regionNew Therapy:Physical TherapyComments:In the near future, we will repeat neck scan due to known degeneration.M19.011 Primary osteoarthritis, right shoulderNew Therapy:Physical TherapyComments:Standard shoulder treatment consists of Ibuprofen and Tylenol which can be taken together , cortisoneinjections, PT and surgery. You have tried three out of the four, however, before considering other protocols I recommended to take more Ibuprofen as needed for pain relief.R73.01 Impaired fasting glucoseComments: Sugars have been high in the past few years. Low carb diet, weight loss discussed.Discussed risk of progression to diabetes if diet not followed.
--- OUTSIDE RECORDS SUMMARY | 2017-03-24 12:05 | XMS REPORT ---
:1945 External Reference #:[id number] Author Organization [facility] [employer] Address [address] [address] Phone [phone] Care Team Providers Name Role Phone Bandar Dowell MD Primary Care Physician Unavailable Payers Type Date Identification Numbers Payment Provider Subscriber Medicare Primary Policy Number: [id number] Medicare Ludivina Alvarez Jennifer PayID: [id number] [address] [place] [address] Medigap Part B Effective: 2009 Policy Number: Medicare Ludivina Alvarez Jennifer [id number] Expires: 2014 PayID: [id number] [address] [place] [address] Medigap Part B Effective: Policy Number: BS Yulisa Alvarez Jennifer 2012 [id number] PayID: [id number] [address] [address] [place] [address] Advance Directives Type Date Description Status Comment [...] Date Description Comments Marital Status Occupation Professor construction field engineer ETOH Use 09/27/2015 Consumes 1 glass of wine per day Smoking Patient has never smoked Recreational Drug Use Denies Drug Use General Hx Text 1 daughter, vet no undercooked meat, or unpasteurized dairy consumption travel to , [place], [facility] [place] Was visiting daughter in , was around goats and chickens then in January. Allergies, Adverse Reactions, Alerts Date Description Reaction Status Severity Comments 06/16/2012 NKDA active Medications Medication Date Status Form Strength Qnty SIG Indications Ordering Provider Fluocinonide 07/06/ Active Cream 0.05% 30gm twice a [place] 2013 day as Pachikara needed Veda rash [...] - weekly Azeem Dowell, 01/26/ for 12 M.D.,[facility] 2016 wks Triamcinolone 08/28/ Hx Cream 0.1% [...] - Rec s hours Azeem Dowell, 05/13/ M.D.,[facility] 2014 Bactrim DS 11/16/ Hx Tablets 800-160mg 120tab 2 by 601.1 Pablo 2013 - s mouth D. 04/02/ twice a 2014 day M.D. Bactrim DS 09/28/ Hx Tablets 800-160mg 180tab 2 tabs po Pablo 2013 - s tid D. 11/16/ 2013 M.D. Augmentin 09/13/ Hx Tablets 500-125mg 60tabs 1 by Bandar 2013 - mouth Azeem Dowell, 10/18/ twice a M.D.,[facility] 2013 day Tramadol HCL 07/18/ Hx Tablets [...] 20tabs 1 po bid Bandar Dowell, 06/27/ Veda,[facility] 2014 Immunizations CPT Code Status Date Vaccine Lot # [id number] Given 01/14/2017 Influenza Virus Vaccine, Quadrivalent, Split, Preservative Free 12631 Given 09/27/2015 Pneumococcal Conjugate Vaccine 13 Valent For [id number] Intramuscular Use 96073 Given 02/15/2014 Zoster (Zostavax) [id number] 77009 Given 12/13/2013 Influenza Virus Vaccine, Quadrivalent, Split, Preservative Free 26444 Given 09/14/2012 Pneumonia Vaccine [id number] 03188 Given 09/07/2002 Td Toxoids Adsorbed For Use [...] Color Yellow Urine Appearance Clear Urine Specific [place] 1.015 1.010-1.030 Urine pH 7.0 5-9 Urine Urobilinogen Negative Negative Urine Ketones Negative Negative Urine Protein Negative Negative Urine Leukocytes Negative Negative Urine Blood Negative Negative * * Negative 16 Urine Nitrite Negative Negative Urine Bilirubin Negative Negative Urine Glucose Negative Negative Urine Culture And Sensitivities 06/28/2014 Urine Culture (SEE NOTE) 17 Urinalysis Profile 06/28/2014 Urine Color Yellow Urine Appearance Clear Urine Specific [place] 1.017 1.010-1.030 Urine pH 6.0 5-9 Urine [...] Color Yellow Urine Appearance Cloudy Urine Specific [place] 1.015 1.010-1.030 Urine pH 7.0 5-9 Urine [...] Color Yellow Urine Appearance Clear Urine Specific [place] 1.016 1.010-1.030 Urine pH 7.0 5-9 Urine [...] Color Yellow Urine Appearance Cloudy Urine Specific [place] 1.014 1.010-1.030 Urine pH 7.0 5-9 Urine [...] Color Nuha Urine Appearance Turbid Urine Specific [place] 1.025 1.010-1.030 Urine pH 7.0 5-9 Urine [...] Color Nuha Urine Appearance Clear Urine Specific [place] 1.029 1.010-1.030 Urine Esterase 2+ Negative Urine [...] Serum levels of PSA measured using the Kiddie KistI Hybritech immunoassay should not be interpreted as [...] <15 (or dialysis) 8 Test Performed by: [place] [address] Manager Oncology: Cj Chatman II, M.D., Ph.D. 9 Normal [...] [address]: Pablo Graf MD Acct: [id number] Unit: [id number] AGE: 69 Location: [facility] Re07/26/14 SEX: M Status: REG REF SPEC: [id number] ISAIAH: 07/26/[address]: Pablo Graf MD REQ: [id number] RECD: 07/26/14 STATUS: COMP _ SOURCE: URINE SPDESC: ORDERED: Urine Culture Urine Source: Clean Catch Procedure Result Verified Site Urine Culture Final 07/28/14- 0955 ML No Growth Day 2 (<1,000 CFU/mL) * ML - MAIN LAB ([facility]) . END OF REPORT * ML=Testing performed at Main Lab DEPARTMENT OF PATHOLOGY, [facility][note 3] [employer] [place], [place] [address] Isaiah Garg M.D. Director [facility] # [id number] 16 *Ascorbic acid is present which may interfere with detection of blood. 17 RUN DATE: 06/30/14 [facility] LAB LIVE PAGE 1 RUN TIME: [address] [place] [address] Specimen Inquiry Name: LUDIVINA RODRIGUEZ : [address]: Pablo Graf MD Acct: [id number] Unit: [id number] AGE: 69 [facility]14 SEX: M Status: REG REF SPEC: [id number] ISAIAH: 06/28/[address]: Pablo Graf MD REQ: [id number] RECD: 06/28/14 STATUS: COMP _ SOURCE: URINE SPDESC: ORDERED: Urine Culture QUERIES: Provider Requisition # [id number] Urine Source: Clean Catch Procedure Result Verified Site Urine Culture Final 06/30/14- 1008 ML No Growth Day 2 (<1,000 CFU/mL) * ML - MAIN LAB ([facility]) . END OF REPORT * ML=Testing performed at Main Lab DEPARTMENT OF PATHOLOGY, [address] [place] [address] Isaiah Garg M.D. Director [facility] # [id number] 18 *Ascorbic acid is present which may [...] Acute inflammation: >10.00 33 RUN DATE: 12/21/13 [facility] LAB LIVE PAGE 1 RUN TIME: [address] [place] [address] Specimen Inquiry Name: JENNIFERLUDIVINA : [address]: Pablo Graf MD Acct: [id number] Unit: [id number] AGE: 68 Location: [facility] Re12/19/13 SEX: M Status: REG REF SPEC: [id number] ISAIAH: 12/19/[address]: Pablo Graf MD REQ: [id number] RECD: 12/19/13 STATUS: COMP _ SOURCE: URINE SPDESC: ORDERED: Urine Culture QUERIES: Medent Number [id number] Urine Source: Clean Catch Procedure Result Verified Site Urine Culture Final 12/21/13- 926 ML Organism 1 ESBL ESCHERICHIA COLI [place] Count 75-100,000 (Many) CFU/ML Consistent with previous [...] performed at Main Lab DEPARTMENT OF PATHOLOGY, [address] [place] [address] Isaiah Garg M.D. Director [facility] # [id number] 34 RUN DATE: 12/18/13 [facility] LAB LIVE PAGE 1 RUN TIME: [address] [place] [address] Specimen Inquiry Name: LUDIVINA RODRIGUEZ : [address]: Pablo Graf MD Acct: [id number] Unit: [id number] AGE: 68 Location: [facility] Re12/16/13 SEX: M Status: REG REF SPEC: [id number] ISAIAH: 12/16/[address] [facility] [address]: Pablo Graf MD REQ: [id number] RECD: 12/16/13 STATUS: MERRILL DANIEL DR: Bandar Dowell MD _ SOURCE: URINE SPDESC: ORDERED: Urine Culture QUERIES: Medent Number [id number] Urine Source: Clean Catch Procedure Result Verified Site Urine Culture Final 12/18/13- 0930 ML No Growth Day 2 (<1,000 CFU/mL) END OF REPORT * ML=Testing performed at Main Lab DEPARTMENT OF PATHOLOGY, [facility][note 3] [employer] [place] [address] Isaiah Garg M.D. Director [facility] # [id number] 35 RUN DATE: 11/26/13 [facility] LAB LIVE PAGE 1 RUN TIME: 0263 [facility][note 3] [address] [place], [place] [address] Specimen Inquiry Name: LUDIVINA RODRIGUEZ : [address]: Pablo Graf MD Acct: [id number] Unit: [id number] AGE: 68 Location: [facility] Re11/24/13 SEX: M Status: REG REF SPEC: [id number] ISAIAH: 11/24/[address] [facility] [address]: Pablo Graf MD REQ: [id number] RECD: 11/24/13 STATUS: COMP MARÍA DR: Bandar Dowell MD _ SOURCE: URINE SPDESC: ORDERED: Urine Culture QUERIES: Medent Number [id number] Procedure Result Verified Site Urine Culture Final 11/26/13- 0752 ML No Growth Day 2 (<1,000 CFU/mL) END OF REPORT * ML=Testing performed at Main Lab DEPARTMENT OF PATHOLOGY, [address] [place] [address] Isaiah Garg M.D. Director [facility] # [id number] 36 Acute inflammation: >10.00 37 RUN DATE: 09/18/13 [facility] LAB LIVE PAGE 1 RUN TIME: [address] [place], [place] [address] Specimen Inquiry Name: LUDIVINA RODRIGUEZ : [address]: Rhonda Dowell MD Acct: [id number] Unit: [id number] AGE: 68 Location: [facility] Re09/13/13 SEX: M Status: REG REF SPEC: [id number] ISAIAH: 09/13/[address] [facility] [address]: Bandar Dowell MD REQ: [id number] RECD: 09/13/13 STATUS: MERRILL DANIEL DR: Pablo Graf MD _ SOURCE: BLOOD,VENO SPDESC: ORDERED: Blood Cult QUERIES: Medent Number [id number] Procedure Result Verified Site Aerobic Culture Bottle Final 09/18/13- 1146 ML No Growth Day 5 Anaerobic Culture Bottle Final 09/18/13- 1146 ML No Growth Day 5 END OF REPORT * ML=Testing performed at Main Lab DEPARTMENT OF PATHOLOGY, [facility][note 3] [employer] [place], [place] [address] Isaiah Garg M.D. Director [facility] # [id number] 38 RUN DATE: 09/15/13 [facility] LAB LIVE PAGE 1 RUN TIME: 1016 [facility][note 3] [address] [place], [place] [address] Specimen Inquiry Name: LUDIVINA RODRIGUEZ : [address]: Rhonda Dowell MD Acct: [id number] Unit: [id number] AGE: 68 Location: [facility] Re09/13/13 SEX: M Status: REG REF SPEC: [id number] ISAIAH: 09/13/13-[address] [facility] [address]: Bandar Dowell MD REQ: [id number] RECD: 09/13/131542 STATUS: COMP _ SOURCE: URINE SPDESC: ORDERED: Urine Culture QUERIES: Medent Number [id number] Procedure Result Verified Site Urine Culture Final 09/15/13- 1016 ML Organism 1 ESBL ESCHERICHIA COLI [place] Count >100,000 (Many) CFU/ML ESBL E. COLI: [...] performed at Main Lab DEPARTMENT OF PATHOLOGY, [address] [place] [address] Isaiah Garg M.D. Director [facility] # [id number] 39 Acute inflammation: >10.00 40 Because ethnic [...] <15 (or dialysis) 43 RUN DATE: 02/26/13 [facility] LAB LIVE PAGE 1 RUN TIME: [address] [place] [address] Specimen Inquiry Name: JENNIFERLUDIVINA : [address]: Martin Babb MD Acct: [id number] Unit: [id number] AGE: 67 Location: [facility] Re02/24/13 SEX: M Status: REG REF SPEC: [id number] ISAIAH: 02/24/13-[address] [facility] [address]: Martin Babb MD REQ: [id number] RECD: 02/24/13 STATUS: COMP MARÍA DR: Bandar Dowell MD _ SOURCE: URINE SPDESC: ORDERED: Urine Culture QUERIES: Medent Number [id number] Procedure Result Verified Site Urine Culture Final 02/26/13- 1240 ML No Growth Day 2 (<1,000 CFU/mL) END OF REPORT * ML=Testing performed at Main Lab DEPARTMENT OF PATHOLOGY, [facility][note 3] [employer] [place], [place] [address] Isaiah Garg M.D. Director [facility] Permit #[id number] 44 RUN DATE: 02/24/13 [facility] LAB LIVE PAGE 1 RUN TIME: 2036 [facility][note 3] [address] [place], [place] [address] Specimen Inquiry Name: LUDIVINA RODRIGUEZ : [address]: Martin Babb MD Acct: [id number] Unit: [id number] AGE: 67 Location: [facility] Re02/24/13 SEX: M Status: REG REF SPEC: [id number] ISAIAH: 02/24/[address] [facility] [address]: Martin Babb MD REQ: [id number] RECD: 02/24/13 STATUS: MERRILL DANIEL DR: Bandar Dowell MD _ SOURCE: JAGDISH SPDES: ORDERED: Rapid Flu A B QUERIES: Medent Number [id number] Procedure Result Verified Site Rapid Influenza A [...] performed at Main Lab DEPARTMENT OF PATHOLOGY, [address] [place] [address] Isaiah Garg M.D. Director [facility] Permit #[id number] 45 Because ethnic data is not always [...] <15 (or dialysis) 51 RUN DATE: 08/05/12 [facility] LAB LIVE PAGE 1 RUN TIME: [address] [place] [address] Specimen Inquiry Name: JENNIFERLUDIVINA : [address]: Dayday Casey MD Acct: [id number] Unit: [id number] AGE: 67 Location: [facility] Re08/02/12 SEX: M Status: REG REF SPEC: [id number] ISAIAH: 08/02/12-[address] [facility] [address]: Dayday Casey MD REQ: [id number] RECD: 08/02/12 STATUS: MERRILL DANIEL DR: Bandar Dowell MD _ SOURCE: URINE SPDESC: ORDERED: Urine Culture QUERIES: Urine Source: Clean Catch Procedure Result Verified Site Urine Culture Final 08/05/12- 921 ML Organism 1 ESBL ESCHERICHIA COLI [place] Count 75-100,000 (Many) CFU/ML Consistent with previous results. This isolate is an Extended Spectrum Beta-Lactamase Study Specialist (ESBL) strain, and as such is considered [...] performed at Main Lab DEPARTMENT OF PATHOLOGY, [facility][note 3] [employer] [place], [place] [address] Isaiah Garg M.D. Director [facility] Permit #[id number] RUN DATE: 08/05/12 [facility] LAB LIVE PAGE 2 RUN TIME: 921 [facility][note 3] [address] [place], [place] [address] Specimen Inquiry Patient: LUDIVINA RODRIGUEZ [id number] (Continued) Specimen: [id number] Collected: 08/02/12-1499 Received: 08/02/12-1624 (Continued) Procedure Result Verified Site Urine Culture Final (continued) Contact the Microbiology Department for any additional antibiotic reporting. END OF REPORT * ML=Testing performed at Main Lab DEPARTMENT OF PATHOLOGY, [address] [place] [address] Isaiah Garg M.D. Director [facility] Permit #[id number] 52 Because ethnic data is not always [...] <15 (or dialysis) 53 RUN DATE: 06/22/12 [facility] LAB LIVE PAGE 1 RUN TIME: [address] [place] [address] Specimen Inquiry Name: LUDIVINA RODRIGUEZ : [address]: Rhonda Dowell MD Acct: [id number] Unit: [id number] AGE: 67 Location: [facility] Re06/17/12 SEX: M Status: REG REF SPEC: [id number] ISAIAH: 06/17/[address]: Bandar Dowell MD REQ: [id number] RECD: 06/17/12 STATUS: COMP _ SOURCE: BLOOD,VENO SPDESC: ORDERED: Blood Cult QUERIES: Medent Number [id number] Procedure Result Verified Site Aerobic Culture Bottle Final 06/22/12919 ML No Growth Day 5 Anaerobic Culture Bottle Final 06/22/12919 ML No Growth Day 5 END OF REPORT * ML=Testing performed at Main Lab DEPARTMENT OF PATHOLOGY, [address] [place] [address] Isaiah Garg M.D. Director [facility] Permit #[id number] 54 Serologic response to B. burgdorferi infection is not detected, but cannot rule out early infection during which low or undetectable antibody levels to B. burgdorferi may be present. If clinically indicated, a new serum specimen should be submitted in 7-14 days. Test Performed by: [address] [address] Manager Oncology: Albert Soler III, M.D. 55 Normal serum [...] Location Provider CPT E/M Dx Office Visit 03/09/2017 [facility] Internal Medicine Bandar Dowell, 00195 Z00.01 1:00p - Biju Mccollum,FACP M50.10 M19.011 R73.01 Office Visit 11/03/2016 3:20p [facility] Internal Medicine Bandar Dowell, 22983 R03.0 - Biju Mccollum,FACP B35.1 Z12.11 Office Visit 09/16/2016 2:40p [facility] [place] [address] B35.8 B35.1 Office Visit 09/14/2016 1:00p [facility] [place] [address] B35.8 B35.1 Office Visit 08/28/2016 10:00a [facility] Internal Medicine Bandar Dowell, 16356 L30.9 - [place] Chang Mccollum,FACP R03.0 Office Visit 06/24/2016 8:00a [facility] [place] [address] M25.511 - [address] Office Visit 02/13/2016 4:40p [facility] Internal Medicine Bandar Dowell, 89494 M72.2 - [place] Chang Mccollum,FACP Office Visit 09/27/2015 3:00p [facility] Internal Medicine Bandar Dowell, 52813 Z00.00 - [place] Chang Mccollum,FACP N41.1 B35.1 Z12.5 Z12.11 E87.1 Z23 Office Visit 07/30/2014 2:00p [facility] Gisela Graf, 31742 601.1 Infectious Diseases M.D. Office Visit 06/28/2014 1:20p [facility] Gisela Graf, 33560 601.1 Infectious Diseases M.D. Office Visit 05/14/2014 2:40p [facility] Lukas Graf, 74723 601.1 Infectious Diseases M.D. Office Visit 04/11/2014 4:20p [facility] Lukas Graf, 65651 601.1 Infectious Diseases M.D. Office Visit 03/19/2014 4:00p [facility] Gisela Graf, 22553 601.1 Infectious Diseases M.D. Office Visit 01/22/2014 3:00p [facility] Lukas Watters. [place], [address]40 601.1 Infectious Diseases M.D. Office Visit 01/01/2014 3:20p [facility] Pablo Graf, 75284 601.1 Infectious Diseases M.D. Office Visit 11/16/2013 4:00p [facility] For Pablo Graf, 98247 601.1 Infectious Diseases M.D. Office Visit 10/19/2013 1:20p [facility] For Pablo Graf, 84693 601.1 Infectious Diseases M.D. 780.79 Office Visit 09/18/2013 4:35p [facility] For Pablo Graf, 73344 780.60 Infectious Diseases M.D. Office Visit 09/13/2013 10:10a [facility] Internal Medicine Bandar Dowell, 12641 780.60 - Biju Mccollum,FACP 789.04 Office Visit 07/18/2013 3:00p [facility] Rios Negrete, 38349 721.0 Of [facility] M.D. Office Visit 07/17/2013 1:40p [facility] Gisela Gann 28499 601.1 Infectious Diseases Veda Graf Office Visit 06/27/2013 4:30p [facility] Internal Medicine - Florina Gamboa, 13175 723.1 Biju N.P. 733.90 Office Visit 05/10/2013 2:20p [facility] Gisela Graf, 48509 601.1 Infectious Diseases M.D. Office Visit 03/07/2013 9:10a [facility] For Pablo Graf, 85678 601.1 Infectious Diseases M.D. 780.60 Office Visit 02/24/2013 3:40p [facility] Internal Medicine Bandar Dowell, 88469 780.60 - Biju Mccollum,[facility] Office Visit 02/01/2013 1:20p [facility] For Pablo Graf, 31060 601.1 Infectious Diseases M.D. Office Visit 01/03/2013 9:10a [facility] Gisela Graf, 39207 573.8 Infectious Diseases M.DBennett 573.8 601.1 601.1 Office Visit 12/07/2012 4:20p [facility] Pablo Graf, 93137 601.1 Infectious Diseases M.D. Office Visit 11/24/2012 4:20p [facility] Internal Medicine Bandar Dowell, 04749 601.1 - Biju Mccollum,FACP 728.71 Office Visit 08/17/2012 4:00p [facility] Pablo Graf, 03396 601.0 Infectious Diseases M.D. Office Visit 07/04/2012 2:40p [facility] Internal Medicine Bandar Dowell, 88494 601.0 - Biju Mccollum,FACP 272.1 276.1 Office Visit 06/24/2012 9:30a [facility] Pablo Graf, 52331 601.0 Infectious Diseases Veda 786.2 Office Visit 06/20/2012 3:20p [facility] Internal Medicine Bandar Dowell, 90090 601.0 - Biju Mccollum,FACP 276.1 786.2 Office Visit 06/16/2012 4:20p [facility] Internal Medicine Bandar Dowell, 46543 780.60 - Biju Mccollum,FACP 786.2 276.1 Plan of Care 03/09/2017 - aBndar Dowell M.D.,FACPZ00.01 Encounter for general adult medical exam w abnormal findingsComments:Flu vaccine received in the fall. Routine Health Maintenance up to date. Depression screen: On fileADL screen: negativeAdvance directives: HCP discussed, form to be obtained.Cognitive impairment screen: negative Reviewed [facility] DM/HM form. Come in for a [...]
[2017-03-24 12:12] VITALS: BP 131/66
--- NOTE | 2017-03-24 12:54 | UC ---
FLU HPI - HPI Summary HPI Summary: Pt presents with body aches, dry cough, and sinus congestion for the last 3 days. He underwent a colonoscopy yesterday without difficulties. He took his temperature earlier today and reports that it was 101F. He has taken tylenol for his fever and discomfort. Denies sore throat, SOB, chest pain, abdominal pain, n/v/d/c. - History of Current Complaint Chief Complaint: UCRespiratory Stated Complaint: SORE THROAT, FEVER Time Seen by Provider: 03/24/17 12:31 Hx Obtained From: Patient Onset/Duration: Gradual Onset Severity Currently: Mild Severity Initially: Moderate Pain Intensity: 5 Pain Scale Used: 0-10 Numeric Associated Signs & Symptoms: Positive: Fever - Allergy/Home Medications Allergies/Adverse Reactions: Allergies Allergy/AdvReac Type Severity Reaction Status Date / Time No Known Allergies Allergy Verified 04/02/14 13:00 Home Medications: Home Medications Acetaminophen TAB* [Tylenol TAB*] 650 mg PO PRN 03/24/17 [History] PMH/Surg Hx/FS Hx/Imm Hx Previously Healthy: Yes - Surgical History Surgical History: Yes Surgery Procedure, Year, and Place: hernia repair,arthro left knee - Family History Known Family History: Positive: Hypertension - Social History Occupation: Retired Lives: With Family Alcohol Use: Occasionally Substance Use Type: None Smoking Status (MU): Never Smoked Tobacco - Immunization History Most Recent Tetanus Shot: <5 YEARS Review of Systems Constitutional: Fever, Other - Body Aches Skin: Negative Eyes: Negative ENT: Sinus Congestion, Sinus Pain/Tenderness Respiratory: Cough Cardiovascular: Negative Gastrointestinal: Negative Neurological: Negative Psychological: Negative All Other Systems Reviewed And Are Negative: Yes Physical Exam Triage Information Reviewed: Yes Appearance: Well-Appearing, No Pain Distress, Well-Nourished Vital Signs: Initial Vital Signs Temp 99.0 F 03/24/17 12:07 Pulse 52 03/24/17 12:07 Resp 18 03/24/17 12:07 BP 131/66 03/24/17 12:07 Pulse Ox 97 03/24/17 12:07 Vital Signs Reviewed: Yes Eyes: Positive: Conjunctiva Clear. Negative: Conjunctiva Inflamed, Discharge ENT: Positive: Hearing grossly normal, Pharynx normal, TMs normal, Uvula midline. Negative: Pharyngeal erythema, Nasal congestion, Nasal drainage, TM bulging, TM dull, TM red, Tonsillar swelling, Tonsillar exudate, Hoarse voice, Sinus tenderness Neck: Positive: Supple, Nontender, No Lymphadenopathy Respiratory: Positive: Chest non-tender, Lungs clear, Normal breath sounds, No respiratory distress, No accessory muscle use Cardiovascular: Positive: RRR, No Murmur, Pulses Normal Neurological: Positive: Alert. Negative: Fatigued Psychological: Positive: Age Appropriate Behavior Skin: Negative: rashes Flu Course/Dx - Course Course Of Treatment: POC influenza A positive. Will treat with Tamiflu - Differential Dx/Diagnosis Provider Diagnoses: Influenza A Discharge - Discharge Plan Condition: Stable Disposition: HOME Prescriptions: Oseltamivir CAP* [Tamiflu CAP*] 75 mg PO BID #10 cap Patient Education Materials: Influenza (DC) Referrals: Bandar Dowell MD [Primary Care Provider] - Additional Instructions: If you develop a fever, shortness of breath, chest pain, new or worsening symptoms - please call your PCP or go to the ED.
== END 2017-03-24 13:00 | disposition home or self-care (01) ==
LOC: UCEAST 11:50
DX: J09.X2 Influenza due to identified novel influenza A virus with other respiratory manifestations (principal)
CPT/HCPCS: 87502; 99212; G0463

== ENCOUNTER 2018-12-26 07:05 | Inpatient (IN) | payer MEDICARE, BC ==
[~2018-12-26 07:05] MED LIST: Buffered Lidocaine 1% SYRIN* 1 ML/SYRINGE INTRADERM ONE; Famotidine IV* 10 MG/ML 2 ML (20 mg) IV ONE; Lactated Ringers 1000 ML Bag* 1,000 ML IV SCH
[2018-12-26] MEDS ORDERED: Buffered Lidocaine 1% SYRIN* 1 ML/SYRINGE INTRADERM ONE (07:32)
[2018-12-26] MEDS ORDERED: ceFAZolin 2 GM in NS PREMIX(*) 2 GM/100 ML BAG IVPB ONE (07:32)
[2018-12-26] MEDS ORDERED: Famotidine IV* 10 MG/ML 2 ML (20 mg) ONE (07:32)
[2018-12-26] MEDS ORDERED: ROPIVACAINE 5 MG/ML 30 ML BTL (0.5%) ONE (08:27)
[2018-12-26] MEDS ORDERED: Lidocaine 1% MPF ** 5 ML VIAL ONE (08:27)
[2018-12-26] MEDS ORDERED: Midazolam* 1 MG/ML 5 ML VIAL (5 MG) ONE (08:39)
[2018-12-26] MEDS ORDERED: Succinylcholine* 20 MG/ML 10 ML VIAL ONE (08:57)
[2018-12-26] MEDS ORDERED: DiMENhydriNATE IV* 50 MG/ML VIAL ONE ×2 (08:57→12:48)
[2018-12-26] MEDS ORDERED: fentaNYL* 50 MCG/ML 2 ML VIAL (100 MCG VIAL) ONE (08:57)
[2018-12-26] MEDS ORDERED: Ondansetron INJ* 2 MG/ML VIAL ONE (08:57)
[2018-12-26] MEDS ORDERED: Dexamethasone IV* 4 MG/ML 1 ML (4 MG) ONE (08:57)
[2018-12-26] MEDS ORDERED: Propofol* 10 MG/ML 20 ML BTL ONE (08:57)
[2018-12-26] MEDS ORDERED: Ketorolac INJ* 30 MG/ML 1 ML VIAL ONE (08:57)
[2018-12-26] MEDS ORDERED: Lidocaine 2% PF * 5 ML VIAL ONE (08:59)
[2018-12-26] MEDS ORDERED: KETAMINE HCL* 50 MG/ML 10 ML VIAL ONE (09:00)
[2018-12-26] MEDS ORDERED: Rocuronium* 10 MG/ML VIAL ONE (09:00)
[2018-12-26] MEDS ORDERED: Acetaminophen TAB* 325 MG PO PRN (11:44)
[2018-12-26] MEDS ORDERED: DiMENhydriNATE IV* 50 MG/ML VIAL IV PUSH PRN (11:44)
[2018-12-26] MEDS ORDERED: Naloxone* 0.4 MG/ML 1 ML VIAL IV PRN (11:44)
[2018-12-26] MEDS ORDERED: Sugammadex * 500 MG/5 ML VIAL IV PUSH ONE (11:53)
[2018-12-26] MEDS ORDERED: diPHENhydraMINE IV* 50 MG/ML 1 ml VIAL (BENADRYL) IV PRN (12:44)
[2018-12-26] MEDS ORDERED: Ondansetron INJ* 2 MG/ML VIAL IV PRN (12:44)
[2018-12-26] MEDS ORDERED: diPHENhydraMINE PO* 25 MG PO PRN (12:44)
[2018-12-26] MEDS ORDERED: Temazepam CAP* 15 MG PO PRN (12:44)
[2018-12-26] MEDS ORDERED: Cyclobenzaprine TAB* 10 MG PO PRN (12:44)
[2018-12-26] MEDS ORDERED: Magnesium Hydroxide LIQ* 30 ML UDC PO PRN (12:44)
[2018-12-26] MEDS ORDERED: oxyCODONE/Acetamin 5/325 MG* TAB PO PRN (12:44)
[2018-12-26] MEDS ORDERED: Morphine INJ* 2 MG/ML 1 ML SYRINGE (TWO MG - NEW SYRINGE VERSION) IV PRN (12:44)
[2018-12-26] MEDS ORDERED: Ondansetron ODT TAB* 4 MG PO PRN (12:44)
[2018-12-26] MEDS ORDERED: oxyCODONE TAB* 5 MG TAB ONE (12:48)
[2018-12-26] MEDS ORDERED: Acetaminophen TAB* 325 MG ONE (12:48)
[2018-12-26] MEDS: oxyCODONE TAB* 5 MG TAB PO PRN ×3 (12:50→20:53)
[2018-12-26] MEDS ORDERED: Mupirocin 2% OINT* TUBE TOPICAL PRN (12:51)
[2018-12-26] MEDS: Lactated Ringers 1000 ML Bag* 1,000 ML IV SCH (14:37)
--- NOTE | 2018-12-26 15:29 | PN ---
Progress Note - Progress Note Date of Service: 12/26/18 Note: Pt doing well. Eating. Family at bedside. Pain controlled. Temp Pulse Resp BP Pulse Ox 97.5 F 74 18 119/71 94 12/26/18 14:44 12/26/18 14:44 12/26/18 14:44 12/26/18 14:44 12/26/18 14:44 NAD. AAOx3.Sensation coming back to all digits. able to flex/ext digits. WWP. drain and sling in place. Xrays acceptable A/P 73 yo POD#0 for R shoulder reverse with open biceps drain until tomorrow analgesia DVT ppx lovenox while in house. Home with nothing post op abx PT/OT- NWB
[2018-12-26] MEDS: traMADol TAB* 50 MG PO PRN (17:26)
[2018-12-26] MEDS: ceFAZolin 1 GM ADVAN(*) 1 GM in NS 0.9% 50 ML* 50 ML IVPB SCH (17:28)
[2018-12-26] MEDS: Magnesium Hydroxide LIQ* 30 ML UDC PO SCH (20:46)
[2018-12-26] MEDS: Docusate CAP* 100 MG PO SCH (20:46)
[2018-12-26] MEDS: Acetaminophen TAB* 325 MG PO SCH (20:46)
--- NOTE | 2018-12-27 00:47 | OP ---
DATE OF OPERATION: 12/26/18 - ROOM #346 DATE OF : 43 SURGEON: Hannah Wilson MD. GUEST HISTORY CLERK: MILTON Beasley. An equity sales assistant was needed for the entirety of the case to help with positioning and retraction and was utilized throughout all portions of the case. ANESTHESIOLOGIST: Dr. Hebert. ANESTHESIA: General and interscalene block. PRE-OP DIAGNOSES: Right shoulder end-stage glenohumeral arthritis with rotator cuff arthropathy. POST-OP DIAGNOSES: Right shoulder end-stage glenohumeral arthritis with rotator cuff arthropathy. OPERATIVE PROCEDURE: Right shoulder reverse shoulder arthroplasty with open biceps tenodesis. COMPLICATIONS: None. ESTIMATED BLOOD LOSS: 150. IMPLANTS USED: Aequalis Reversed II threaded base plate 29 x 35 with size 42 centered glenosphere, Ascend Flex size 4B humeral stem with a centered reversed tray, and a plus 9 poly. OUTPUT: Drains x1. DISPOSITION: Stable. INDICATIONS: Austin Marcelo is a 73-year-old male with severe end-stage glenohumeral arthritis with rotator cuff arthropathy. He has failed conservative management, elected to proceed with surgical treatment. Risks and benefits were discussed at length including, but not limited to, bleeding; infection; damage to nerves, vessels, surrounding structures; wound nonhealing; persistent pain; need for further surgery; scarring; stiffness; incomplete relief of symptoms; risks of anesthesia as well risk of fracture dislocation and need for further surgery. DESCRIPTION OF PROCEDURE: The patient was greeted in the preoperative area by the attending surgeon. Correct extremity was marked and consent was confirmed. The patient underwent interscalene nerve block by anesthesiologist, after which he was brought back to the operating site, placed in the supine position on the operating table and then underwent general anesthesia with endotracheal intubation, after which he was positioned in the lazy beach chair position with all bony prominences padded. He was secured carefully. The right shoulder was then prepped and draped in the usual sterile fashion using chlorhexidine soap, scrub, and alcohol wipe, and a final prep with ChloraPrep. After appropriate surgical pause indicating side, site, procedure, and administration of antibiotics, the deltopectoral interval was then made with a 15- blade. Soft tissue was carefully dissected to expose the deltopectoral interval which was then incised. Cephalic vein was taken laterally. The soft tissues were carefully dissected to expose clavipectoral fascia. The CA ligament was released. The clavipectoral fascia was removed. The pec was identified as it inserted and proximal 1.5 cm was then released. Biceps was tenodesed using heavy nonabsorbable suture and to allow for biceps tenodesis. It was tenotomized proximal then followed into the groove. There was evidence of large biceps tenosynovitis as well as synovitis present. The subscap was identified. It was then released in subscap peel fashion. The circumflex artery and vessels were then cauterized. The subscap was then released in subscap peel fashion and tagged with a #5 Ethibond suture. This exposed the humeral head. There were large anterior inferior osteophytes that were present with grade 4 changes to the humeral head. The osteophytes were released inferiorly and the head was exposed. There was evidence of full-thickness tear of the rotator cuff and the supraspinatus tendon. The visual neck cut was then made using a sagittal saw. The canal finder was then used to find the intramedullary canal. Broaching then began, starting with size 1 and size 4 which was found to have excellent fit. The protection plate was then placed and the attention was directed to the glenoid. A posterior retractor was then placed. There was abundant synovitis with a very friable tissue. This was all removed. The anterior, posterior, superior labrum was released. The superior middle and inferior glenohumeral ligaments were then released. The subscap was carefully mobilized. Again, there was abundant synovitis. Then carefully with tension on the soft tissue inferiorly, this was then released. The entire glenoid was exposed. There were grade 4 changes. A guide was then used to place for the 29 base plate, it was then placed at 0. This was then drilled. The reaming then began with a size 29 base plate reamer, then size 42 footprint reamer with hand ream. Once the bone and debris were removed, an 8 mm cannulated drill was used to drill the first head hole and then a 6.5 mm drill bit was used to drill the screw hole for the baseplate. Size 35 was found to be the appropriate fit. The screw hole was intact. The final implant was then brought to the field and placed with excellent purchase into position. Three interlocking screws were used to help secure the glenoid. The size 42 glenosphere was then impacted into position and secured with a set screw. The attention was then directed to the humerus. The humeral head was brought through the wound, broach was checked. Again, retroversion was set to about 30 degrees, which was probably fit. The size centered base plate was chosen and the +6 poly was trialed. It was found to have a little bit more shuck, therefore a +9 was chosen. The shoulder was then reduced. The preoperative range of motion was passively with forward flexion to about 90, abduction to about 80, external rotation to about 20, external rotation to about 55, abduction to 90, forward flexion to about 140. The final implants were chosen. The trial humerus was removed. Two interosseous tunnels were then made and #5 Ethibond sutures were then placed for later subscap closure. The final implant was prepared in the back table by the attending surgeon. This was then placed again in the same retroversion. The poly was positioned. The shoulder was then reduced, taken through same motion. Wounds were then copiously irrigated with sterile saline. The subscap was closed with previously passed sutures in a horizontal mattress configuration. Intraarticular drain was placed. The wounds were copiously irrigated again. The deltopectoral interval was closed with #2 Ethibond in interrupted fashion. The wounds were irrigated again. The skin was closed in layers with 3-0 Monocryl and subcutaneous in running fashion. Sterile dressings were applied. Cryo/Cuff and UltraSling were applied. He was awoken from anesthesia and transferred to the PACU in stable condition. PREOPERATIVE PLAN: He will be nonweightbearing. He will be in a sling. He will discharged on postop day 1. He will be admitted with 24 hours of postoperative antibiotics. The drain will be discontinued on postop day 1. We will see the patient inhouse, Ramila for DVT prophylaxis inhouse, and later discharge without anything. I will see the patient back in 10 to 14 days in the office. [id number]/[facility] #: [id number] MTDDuong
[2018-12-27] MEDS: Lactated Ringers 1000 ML Bag* 1,000 ML IV SCH ×2 (00:49→09:30)
[2018-12-27] MEDS: oxyCODONE TAB* 5 MG TAB PO PRN ×6 (01:39→22:55)
[2018-12-27] MEDS: ceFAZolin 1 GM ADVAN(*) 1 GM in NS 0.9% 50 ML* 50 ML IVPB SCH ×2 (01:45→09:19)
[2018-12-27] MEDS: traMADol TAB* 50 MG PO PRN ×2 (03:10→09:19)
[2018-12-27] MEDS: Acetaminophen TAB* 325 MG PO SCH ×3 (04:53→21:11)
[2018-12-27 07:00] LABS: Hematocrit 37 % (42-52); Mean Platelet Volume 6.9 fL (7.4-10.4); Platelet Count 176 10^3/uL (150-450)
[2018-12-27 07:19] LABS: BUN/Creatinine Ratio 24.3 (8-20); Calcium 8.3 mg/dL (8.6-10.3); EGFR African American 133.4 (>60); EGFR Non-African American 110.2 (>60); Potassium 4.1 mmol/L (3.5-5.0)
[2018-12-27] MEDS: Vitamin THERAPEUTIC TAB PO SCH (09:19)
[2018-12-27] MEDS: Magnesium Hydroxide LIQ* 30 ML UDC PO SCH ×2 (09:19→21:04)
[2018-12-27] MEDS: Docusate CAP* 100 MG PO SCH ×2 (09:19→21:04)
[2018-12-27] MEDS: Lidocaine PATCH 5%* 1 PATCH TRANSDERM SCH (09:20)
--- NOTE | 2018-12-27 10:19 | PN ---
Progress Note - Progress Note Date of Service: 12/27/18 SOAP: Subjective: []Pt seen and examined at bedside. He denies CP, SOB, dizziness, confusion, headache or nausea. Pain is poorly controlled this morning. Objective: []Gen: NAD RUE: Right shoulder dressing CDI. Drain and sling in place. Minimal drainage in hemovac, though just emptied per pt. F/E digits intact, Sensation intact to light touch throughout extremity. Assessment: []A/P 73 yo POD#1 for R shoulder reverse with open biceps Plan: []Anticipate will remove drain once output recorded by staff, patient concerned about volume drained overnight. DVT ppx lovenox while in house. Home with nothing post op abx x 3 doses PT/OT- NWB PROM only of shoulder. No FF or ABD past 90. No ER past 25. Ok AROM elbow, wrist and hand. hyponatremia: chronically low, recheck tomorrow Pain: alternating oxycodone and tramadol, can switch to alternating oxycodone and percocet as needed for better control Vital Signs Temp 98.5 F 12/27/18 07:51 Pulse 66 12/27/18 07:51 Resp 16 12/27/18 09:59 BP 133/68 12/27/18 07:51 Pulse Ox 94 12/27/18 07:51 Intake & Output 12/26/18 12/27/18 12/27/18 18:59 06:59 18:59 Intake Total 1810 1780 1286 Output Total 1200 300 Balance 1810 580 986 Weight 214 lb 6.4 oz Intake: IV Fluids 1700 980 796 LR 1000 980 796 NS 600 NS 100ML, Cefazolin 2G 100 IVPB 110 50 50 ABX - CEFAZOLIN 55 50 50 Oral 0 750 440 Output: Urine 1200 300 Other: Estimated Void Medium Laboratory Last Values Hgb 13.0 g/dL (14.0-18.0) L 12/27/18 06:43 Hct 37 % (42-52) L 12/27/18 06:43 Plt Count 176 10^3/uL (150-450) 12/27/18 06:43 MPV 6.9 fL (7.4-10.4) L 12/27/18 06:43 Sodium 127 mmol/L (135-145) L 12/27/18 06:43 Potassium 4.1 mmol/L (3.5-5.0) 12/27/18 06:43 Chloride 94 mmol/L (101-111) L 12/27/18 06:43 Carbon Dioxide 27 mmol/L (22-32) 12/27/18 06:43 Anion Gap 6 mmol/L (2-11) 12/27/18 06:43 BUN 17 mg/dL (6-24) 12/27/18 06:43 Creatinine 0.70 mg/dL (0.67-1.17) 12/27/18 06:43 Est GFR ( Amer) 133.4 (>60) 12/27/18 06:43 Est GFR (Non-Af Amer) 110.2 (>60) 12/27/18 06:43 BUN/Creatinine Ratio 24.3 (8-20) H 12/27/18 06:43 Glucose 125 mg/dL (70-100) H 12/27/18 06:43 Calcium 8.3 mg/dL (8.6-10.3) L 12/27/18 06:43
[2018-12-27] MEDS: Enoxaparin(*) 40 MG/0.4 ML SYR SUBCUT SCH (13:13)
[2018-12-27] MEDS: Polyethylene Glycol 3350* 17 GM PACKET PO PRN (13:52)
[2018-12-27] MEDS: oxyCODONE/Acetamin 5/325 MG* TAB PO PRN ×2 (16:59→21:03)
[2018-12-27] MEDS ORDERED: Lidocaine Patch REMOVE* 1 NOTE MISC PATCH OFF SCH (21:00)
[2018-12-28] MEDS: oxyCODONE/Acetamin 5/325 MG* TAB PO PRN ×3 (02:05→18:06)
[2018-12-28] MEDS: oxyCODONE TAB* 5 MG TAB PO PRN ×3 (05:50→15:14)
[2018-12-28] MEDS: Acetaminophen TAB* 325 MG PO SCH ×2 (05:54→13:12)
--- NOTE | 2018-12-28 07:11 | PN ---
Progress Note - Progress Note Date of Service: 12/28/18 Note: Pt seen and examined. Pain better controlled. Admitted due to pain not being controlled and increased drain output. Temp Pulse Resp BP Pulse Ox 98.0 F 65 18 131/64 95 12/28/18 03:34 12/28/18 03:34 12/28/18 05:56 12/28/18 03:34 12/28/18 03:34 NAD. AAOx3. RUE: dressing and drain in place. SILT grossly distally. brisk cap refill. A/P POD#2 from R reverse doing well NWB. remove drain today. dispo home today
[2018-12-28 07:27] VITALS: BP 177/74
[2018-12-28] MEDS: Docusate CAP* 100 MG PO SCH (08:50)
[2018-12-28] MEDS: Vitamin THERAPEUTIC TAB PO SCH (08:50)
[2018-12-28] MEDS: Lidocaine PATCH 5%* 1 PATCH TRANSDERM SCH (08:52)
[2018-12-28] MEDS: Magnesium Hydroxide LIQ* 30 ML UDC PO SCH (08:53)
[2018-12-28] MEDS: Polyethylene Glycol 3350* 17 GM PACKET PO PRN (10:31)
--- NOTE | 2018-12-28 10:43 | DS ---
Orthopedic Discharge Summary - Discharge Summary Date of Admission:12/26/18 Date of Discharge: 12/28/18 Date of Surgery: 12/26/18 Attending Orthopedic Provider: Dr Wilson Pre-operative Diagnosis: right shoulder pain Operative Procedure: right reverse should arthroplasty Disposition of Patient: home Condition of Patient: stable History: LUDIVINA Alvarez JENNIFER is a 73 year old M with years of increasingly severe right shoulder pain. Patient has failed conservative management and has elected to undergo a right reverse total shoulder replacement Hospital Course: LUDIVINA was admitted to [facility] on 12/27/18. Patient underwent a right reverse total shoulder replacement without complication followed by a brief recovery in PACU and transfer to the Short Stay Surgical Unit in stable condition. Our physical therapy and occupational therapy also participated in this patients care. Post-op day 1: patient was alert and in no acute distress. Dressing was clean, dry and intact. Operative extremity wrist and digit f/e intact, sensation intact to light touch distally, radial pulse2+. Post-op day two: drain was removed with tip intact, tolerated well by the patient. Patient was deemed to be medically and orthopedically stable for discharge. Physical and occupational therapy goals were met. Home Medications Medication Instructions Recorded Confirmed Type Multivitamins/Minerals TAB* [Thera 1 tab PO QAM 05/15/12 12/26/18 History M Plus TAB*] Motrin TAB* 400 mg PO DAILY PRN 06/17/12 12/26/18 History Glucosamine CAP (NF) 1,000 cap PO QAM 01/03/14 12/26/18 History Fluocinonide 0.05% CREAM(NF) 1 applic TOPICAL BID PRN 04/02/14 12/20/18 History Mupirocin 2% CREAM* [Bactroban 2% 1 applic TOPICAL BID PRN 04/02/14 12/20/18 History CREAM*] Lidocaine PATCH 5%* [Lidoderm 5% 1 patch TRANSDERM QAM 12/19/18 12/26/18 History Patch*] Calcium Citrate/Vitamin D2 1 each PO QAM 12/20/18 12/26/18 History Calcium with Vit D Tablet Acetaminophen TAB* [Tylenol TAB*] 975 mg PO 0500,1300,2100 tab 12/28/18 Rx Docusate CAP* [Colace Cap*] 100 mg PO BID cap 12/28/18 Rx oxyCODONE TAB* [Roxycodone TAB 5 10 mg PO Q4H PRN #30 tab MDD 8 12/28/18 Rx mg*] oxyCODONE/Acetamin 5/325 MG* 1 tab PO Q4H PRN tab 12/28/18 Rx [Percocet 5/325 TAB*] oxyCODONE/Acetamin 5/325 MG* 2 tab PO Q4H PRN #30 tab MDD 8 12/28/18 Rx [Percocet 5/325 TAB*] Discharge Instructions following Orthopedic Surgery: Activity: * Nonweightbearing right upper extremity. Keep sling in place. * Physical therapy instruction: Passive range of motion only of the shoulder. No Forward flexion or abduction past 90. No External Rotation past 25. Ok active range of motion of elbow, wrist and hand. Wound care: * OK to shower on post-op day 3, no bathing, swimming, or submerging wound. * Use gentle soap, pat dry. Cover with gauze, JJ wrap or tape. Call Orthopedic office for: * Increased drainage * Redness * Increased pain * Fever Go to ER with shortness of breath or chest pain. Diet: * Regular diet * Increase fluids and fiber to prevent constipation. * Continue to use stool softeners, call office if no bowel motion within 48 hours. Medications See Home Medication List in your packet for medications that you should take after discharge. Pain Control: -Use oxycodone for primary pain control dosing: oxycodone 5 mg tabs. 1 tab for moderate pain and 2 tabs for severe pain. Max 8 tabs per day. -Use tylenol for pain not well controlled by oxycodone. If tylenol has not adequately controlled your pain, you may alternate taking oxycodone with percocet. -Percocet Dosin/325 mg 1 for breakthrough pain and 2 tabs for more severe unrelieved pain by mouth every 4 hours as needed for pain. Maximum of 8 tabs per day. Hold both oxycodone and percocet for sedation. Wean first off of percocet then wean off of oxycodone by spacing out dosing. You may use tylenol or ibuprofen over the counter for pain control as needed Please note that Percocet contains Tylenol (acetaminophen). Maximum daily dose of Tylenol is 4000 mg from all sources. Antibiotics are required prior to any dental work. FOLLOW UP: Follow up with Dr. Esquivel Within 10-14 days, call for appointment Please call our office with any questions or concerns ([phone]) RX to [facility]
[2018-12-28] MEDS ORDERED: Bisacodyl SUPP* 10 MG SUPP PR PRN (12:44)
[2018-12-28] MEDS: Enoxaparin(*) 40 MG/0.4 ML SYR SUBCUT SCH (13:08)
[2018-12-28] MEDS ORDERED: Ketorolac INJ* 30 MG/ML 1 ML VIAL IV PUSH ONE (14:32)
== END 2018-12-28 18:55 | disposition home or self-care (01) | DRG 483 ==
LOC: OR 07:05 → SSU 12:44 → OBSVTOIN 12-27 16:00
PROVIDERS: ADMIT Orthopaedic Surgery; ATTEND Orthopaedic Surgery
PROC: 0RRJ00Z Replacement of Right Shoulder Joint with Reverse Ball and Socket Synthetic Substitute, Open Approach (ICD-10-PCS; principal; 2018-12-27)
DX: M19.011 Primary osteoarthritis, right shoulder (principal); E87.1 Hypo-osmolality and hyponatremia; N42.9 Disorder of prostate, unspecified; M75.101 Unspecified rotator cuff tear or rupture of right shoulder, not specified as traumatic; M89.49 Other hypertrophic osteoarthropathy, multiple sites; Z87.440 Personal history of urinary (tract) infections; Z82.49 Family history of ischemic heart disease and other diseases of the circulatory system; Z72.89 Other problems related to lifestyle
CPT/HCPCS: 36415; 80048; 85014; 85018; 85049; 88304; 88311; 96361; 96365; A9270-GY; C1713; C1776; G0378; G8978-GP-CH; G8979-GP-CH; G8980-GP-CH; G8987-GO-CJ; G8988-GO-CJ; G8989-GO-CJ; J0330; J0690; J1100; J1240; J1650; J1885; J2250; J2270; J2405; J2704; J2795; J3010